=== PATIENT | female | born 1975 | race Caucasian/White ===

== ENCOUNTER 2022-08-11 18:05 | Emergency (ER) | payer OTHER, SELFPAY ==
--- NOTE | ~2022-08-11 | CT_ITS ---
EXAMINATION: CT ABDOMEN AND PELVIS WITHOUT CONTRAST CLINICAL INFORMATION: Right flank pain. Question stone. COMPARISON: None TECHNIQUE: Multidetector volumetric imaging was performed from the superior aspect of the liver through the pubic symphysis. Sagittal and coronal reformatted images were obtained on the technologist's workstation. This CT examination was performed using dose optimization techniques as appropriate, variously including the following: *Automated exposure control *Adjustment of mA and/or kV according to patient size (this includes techniques or standardized protocols for targeted exams where dose is matched to indication/reason for exam; i.e. extremities or head) *Use of iterative reconstruction technique DLP: 713 mGy-cm FINDINGS: LUNG BASES: The visualized lung bases are unremarkable. LIVER, GALLBLADDER, AND BILIARY TREE: The liver is normal in size, shape, and attenuation. No focal hepatic lesion or biliary ductal dilatation is present. The gallbladder is unremarkable with no evidence of radiopaque gallstones, gallbladder wall thickening, or obvious pericholecystic inflammatory changes. PANCREAS: Unremarkable. SPLEEN: Unremarkable. ADRENAL GLANDS: Unremarkable. KIDNEYS AND URETERS: The right kidney is normal appearing. No right renal stone or hydronephrosis. No right ureteral dilatation or ureteral stone. There are 3 left renal stones. There are 2 small 2 to 3 mm stones in the upper pole of the left kidney. There is a larger 2 x 5 mm stone in the lower pole of the left kidney. There is a 1.5 cm low-attenuation area in the central lower pole of the left kidney probably representing a peripelvic cyst. No imaging follow-up recommended.. No hydronephrosis. BLADDER: Unremarkable. GASTROINTESTINAL TRACT: The small and large bowel are unremarkable. The appendix is is not identified. There are no inflammatory changes in the right lower quadrant. ABDOMINAL WALL: No significant hernia is appreciated. There is diastasis of the rectus muscles. LYMPH NODES: Normal. VASCULAR: Unremarkable. PELVIC VISCERA: There is an IUD in the uterus in satisfactory position. OSSEOUS STRUCTURES: Unremarkable. CT/CT abdomen pelvis wo IV con IMPRESSION: Left renal stones. No right renal stone seen. Fleischner guidelines were followed.
--- NOTE | 2022-08-11 18:24 | ED_ITS ---
HPI - Back Pain/Injury General Chief Complaint: Back Pain/Injury <Audrey Lopez CNP - Last Filed: 08/11/22 20:21> Stated Complaint: lower right side back pain <Audrey Lopez CNP - Last Filed: 08/11/22 20:21> Time Seen by Provider: 08/11/22 20:19 <Audrey Lopez CNP - Last Filed: 08/11/22 20:21> Source: patient <Paul Lozada MD - Last Filed: 08/12/22 02:13> Mode of arrival: ambulatory <Paul Lozada MD - Last Filed: 08/12/22 02:13> Limitations: language barrier ( Urdu speaking only, iPad information technology architect used) <Paul Lozada MD - Last Filed: 08/12/22 02:13> History of Present Illness HPI Narrative: 46-year-old female who presents emergency department for evaluation of right back/flank pain x2 days. The patient states that she has had a constant pain she points to her right lower back when asked localize the pain. She states that the stabbing pain which is worse with movement. The pain is been there for approximately 2-3 days this is a 1st episode of this type of pain. She denied frequency, urgency or dysuria. She states that she was seen yesterday at an urgent care clinic and was started on the muscle, tizanidine without any relief of her pain. She states she has chronic pain in both lower extremities for several months and takes gabapentin for this pain. She denies any new numbness or weakness in her lower extremities. She denies loss of bowel or bladder control. She denied fever, chills, sore throat, cough, chest pain, shortness of breath, nausea, vomiting or diarrhea. <Paul Lozada MD - Last Filed: 08/12/22 02:13> Related Data Home Medications: Previous Rx's Medication Instructions Recorded acetaminophen 500 mg capsule 1,000 mg PO Q6H PRN pain #30 caps 08/12/22 ibuprofen 400 mg tablet 400 mg PO TID PRN fever or pain 08/12/22 #30 tabs oxycodone 5 mg capsule 5 mg PO Q4H PRN pain #10 caps 08/12/22 <Audrey Lopez CNP - Last Filed: 08/11/22 20:21> Allergies/Adverse Reactions: Allergies Allergy/AdvReac Type Severity Reaction Status Date / Time cortisone [CORTISONE] Allergy Unknown UNKNOWN Unverified 03/05/20 17:12 <Audrey Lopez CNP - Last Filed: 08/11/22 20:21> Review of Systems Review of Systems: Yes all other systems are reviewed and are negative <Paul Lozada MD - Last Filed: 08/12/22 02:13> [facility] Social History Social History: Social History Smoked in Last 30 Days: No Use of substances other than those prescribed or required for medical reasons: No Advance Directives: No Advance Directives Information Provided: Yes <Audrey Lopez CNP - Last Filed: 08/11/22 20:21> Physical Exam Vital Signs: Vital Signs: Last Vital Signs Temp 98.4 F 08/12/22 01:33 Pulse 72 08/12/22 01:33 Resp 16 08/12/22 01:33 BP 164/100 H 08/12/22 01:33 Pulse Ox 97 08/12/22 01:33 O2 Del Method 08/12/22 01:33 BMI result Body Mass Index 29.5 <Audrey Lopez CNP - Last Filed: 08/11/22 20:21> Vital Signs: Last Vital Signs Temp 98.4 F 08/12/22 01:33 Pulse 72 08/12/22 01:33 Resp 16 08/12/22 01:33 BP 164/100 H 08/12/22 01:33 Pulse Ox 97 08/12/22 01:33 O2 Del Method 08/12/22 01:33 BMI result Body Mass Index 29.5 <Paul Lozada MD - Last Filed: 08/12/22 02:13> Const: General: cooperative and no acute distress <Paul Lozada MD - Last Filed: 08/12/22 02:13> Orientation/consciousness: oriented to person and oriented to place <Paul Lozada MD - Last Filed: 08/12/22 02:13> Limitations: no limitations <Paul Lozada MD - Last Filed: 08/12/22 02:13> HEENT: Head: Yes normal to inspection, Yes normocephalic and Yes atraumatic <Paul Lozada MD - Last Filed: 08/12/22 02:13> Ears: external ears normal <Paul Lozada MD - Last Filed: 08/12/22 02:13> General nose exam: Normal external nose present <Paul Lozada MD - Last Filed: 08/12/22 02:13> Face and sinus: Yes normal facial exam <Paul Lozada MD - Last Filed: 08/12/22 02:13> Mouth: Normal oral and palatal mucosa present <Paul Lozada MD - Last Filed: 08/12/22 02:13> Throat: Yes posterior oropharynx normal <Paul Lozada MD - Last Filed: 08/12/22 02:13> Eyes: General: appearance normal, both eyes and all related structures <Paul Lozada MD - Last Filed: 08/12/22 02:13> Pupils: Equal, round and reactive pupils present <Paul Lozada MD - Last Filed: 08/12/22 02:13> Neck: Neck: Yes normal visual inspection, Yes no lymphadenopathy, Yes trachea midline and Yes supple <Paul Lozada MD - Last Filed: 08/12/22 02:13> Chest: Chest palpation & inspection: normal inspection of the chest and normal palpation of entire chest wall <Paul Lozada MD - Last Filed: 08/12/22 02:13> Resp: Effort & Inspection: normal respiratory effort and able to speak in complete sentences <Paul Lozada MD - Last Filed: 08/12/22 02:13> Auscultation: clear to auscultation bilaterally <Paul Lozada MD - Last Filed: 08/12/22 02:13> Cardio: Rate: regular rate <Paul Lozada MD - Last Filed: 08/12/22 02:13> Rhythm: regular rhythm <Paul Lozada MD - Last Filed: 08/12/22 02:13> Heart sounds: S1 normal heart sound present, S2 normal heart sound present and no murmurs <Paul Lozada MD - Last Filed: 08/12/22 02:13> GI: Inspection: Yes normal to inspection <Paul Lozada MD - Last Filed: 08/12/22 02:13> Palpation (GI): Soft to palpation, nontender and no guarding <Paul Lozada MD - Last Filed: 08/12/22 02:13> Auscultation: normal bowel sounds <Paul Lozada MD - Last Filed: 08/12/22 02:13> Back/Spine/Pelvis: Other: Patient has tenderness palpation of her paraspinal muscles in the right lumbar sacral area, she has negative straight leg raises bilaterally. <Paul Lozada MD - Last Filed: 08/12/22 02:13> Skin: General skin exam: no rashes or lesions noted <Paul Lozada MD - Last Filed: 08/12/22 02:13> Neuro: General: oriented to person and oriented to place <Paul Lozada MD - Last Filed: 08/12/22 02:13> Cranial nerves: Yes CN's II-XII intact bilaterally and Yes Equal, round and reactive pupils present <Paul Lozada MD - Last Filed: 08/12/22 02:13> Cognition (Neuro): normal cognition <Paul Lozada MD - Last Filed: 08/12/22 02:13> Motor exam (neuro): 5/5 motor strength present throughout <Paul Lozada MD - Last Filed: 08/12/22 02:13> Extrem: General: Yes normal to inspection <Paul Lozada MD - Last Filed: 08/12/22 02:13> Psych: Appearance: grossly normal <Paul Lozada MD - Last Filed: 08/12/22 02:13> Speech and movement: Normal speech and movement present <Paul Lozada MD - Last Filed: 08/12/22 02:13> Affect: normal affect <Paul Lozada MD - Last Filed: 08/12/22 02:13> Attitude: cooperative <Paul Lozada MD - Last Filed: 08/12/22 02:13> Course Course Course Narrative: Patient is a 46-year-old female who presents emergency department for evaluation of right lower back/ flank pain. Onset of symptoms was a few days ago without precipitating injury. Denies any heavy lifting. Denies any prior history of back pain. Denies symptoms. States she was seen by PCP yesterday, received prescription for muscle relaxer, Tizanadine 2mg, has taken a few times, but this is not helping. Denies fevers, chills, N/V, ABD pain. Plan: urinalysis, labs <Audrey Lopez CNP - Last Filed: 08/11/22 20:21> Medications Administered Discontinued Medications Generic Name Dose Route Start Last Admin Trade Name Freq PRN Reason Stop Dose Admin Acetaminophen 975 mg 08/11/22 23:52 08/12/22 01:34 Acetaminophen 325 Mg Tablet PO 08/11/22 23:53 975 mg ONCE STA Administration Ibuprofen 400 mg 08/11/22 23:52 08/12/22 01:35 Ibuprofen 400 Mg Tablet PO 08/11/22 23:53 400 mg ONCE ONE Administration Oxycodone HCl 5 mg 08/11/22 23:52 08/12/22 01:35 Oxycodone Hcl Immed Release 5 Mg Tablet PO 08/11/22 23:53 5 mg ONCE STA Administration <Audrey Lopez CNP - Last Filed: 08/11/22 20:21> Medications Administered Discontinued Medications Generic Name Dose Route Start Last Admin Trade Name Freq PRN Reason Stop Dose Admin Acetaminophen 975 mg 08/11/22 23:52 08/12/22 01:34 Acetaminophen 325 Mg Tablet PO 08/11/22 23:53 975 mg ONCE STA Administration Ibuprofen 400 mg 08/11/22 23:52 08/12/22 01:35 Ibuprofen 400 Mg Tablet PO 08/11/22 23:53 400 mg ONCE ONE Administration Oxycodone HCl 5 mg 08/11/22 23:52 08/12/22 01:35 Oxycodone Hcl Immed Release 5 Mg Tablet PO 08/11/22 23:53 5 mg ONCE STA Administration <Paul Lozada MD - Last Filed: 08/12/22 02:13> Medical Decision Making Medical Decision Making [facility] Narrative: 46-year-old female who presents emergency department for evaluation of 3 days of right lower back pain with no injury. She had no systemic symptoms. Laboratory evaluation and CT scan abdomen pelvis was ordered by provider in triage. Laboratory evaluation was ordered by per quadrant triage. My independent interpretation of patient's laboratory evaluation is as follows: CBC was normal. CMP was normal. Urinalysis revealed 1+ blood, trace leukocyte esterase. Microscopic revealed 3-5 RBCs 0-[address] scan of the abdomen pelvis without IV contrast did not reveal a clear cause for the patient's right-sided back pain, the patient does have 3 nonobstructing kidney stones in the left kidney. Patient's presentation is consistent with musculoskeletal strain of her lower back. Patient was advised to continue taking her tizanidine for muscle spasm. She was also advised to take Tylenol and ibuprofen and for pain not relieved by these medications she was prescribed a limited number of oxycodone. The patient was given printed and verbal instructions and discharged home. <Paul Lozada MD - Last Filed: 08/12/22 02:13> Differential Diagnosis Differential diagnosis includes but is not limited to musculoskeletal strain, disc disease, pyelonephritis, urinary tract infection, renal colic, ureteral stones <Paul Lozada MD - Last Filed: 08/12/22 02:13> Lab Data [facility] Lab Attestation statement: I reviewed the patient's lab results. <Paul Lozada MD - Last Filed: 08/12/22 02:13> please see [facility] for my discussion <Paul Lozada MD - Last Filed: 08/12/22 02:13> Result Diagrams: 08/11/22 18:59 08/11/22 18:59 <Audrey Lopez CNP - Last Filed: 08/11/22 20:21> Labs: Lab Results 08/11/22 08/11/22 08/11/22 Range/Units 18:59 18:59 19:55 WBC 11.8 H (4.8-10.8) X10*3/uL RBC 4.63 (4.20-5.50) X10*6/uL Hgb 14.1 (12.0-16.0) g/dl Hct 42.9 (37.0-47.0) % MCV 92.7 (80.0-98.0) fL MCH 30.5 (27.0-33.0) pg MCHC 32.9 (31.0-35.0) g/dl RDW 13.5 (11.0-16.0) % Plt Count 309 (160-400) X10*3/uL MPV 10.5 (9.4-12.3) fL Immature Gran % (Auto) 0.3 (0.0-0.4) % Neut % (Auto) 56.1 (45-73) % Lymph % (Auto) 35.3 (20-40) % [place] % (Auto) 6.4 (2-11) % Eos % (Auto) 1.3 (0-4) % Baso % (Auto) 0.6 (0-2) % Lymph # (Auto) 4.2 (1.2-4.9) X10*3/uL [place] # (Auto) 0.8 (0.1-1.2) X10*3/uL Eos # (Auto) 0.2 (0.0-0.4) X10*3/uL Baso # (Auto) 0.1 (0.0-0.2) X10*3/uL Abs Immat Gran (auto) 0.04 H (0.00-0.03) X10*3/uL Absolute Neuts (auto) 6.6 (2.0-8.3) x10*3/uL Absolute Nucleated RBC 0.000 (0.0-0.012) X10*3/uL Nucleated RBC % (auto) 0.0 (0.0-0.2) /100WBC Sodium 144 (135-145) mmol/L Potassium 3.6 (3.3-5.1) mmol/L Chloride 107 (96-108) mmol/L Carbon Dioxide 27 (22-29) mmol/L Anion Gap 14 (12-20) BUN 20 H (9-16) mg/dL Creatinine 0.77 (0.5-1.4) mg/dL Estim Creat Clear Calc 93.2 Estimated GFR > 60 Random Glucose 116 H (60-115) mg/dL Calcium 9.8 (8.4-10.2) mg/dL Total Bilirubin 0.6 (0.0-1.0) mg/dL AST 15 (5-31) U/L ALT 15 (0-31) U/L Alkaline Phosphatase 96 (39-117) U/L Total Protein 7.0 (6.5-8.0) g/dL Albumin 4.2 (3.5-5.0) g/dL Beta HCG, Quant < 2 mIU/mL Urine Color Yellow Urine Appearance Cloudy Urine pH 5.5 (5.0-9.0) Ur Specific Lynn 1.025 (1.005-1.025) Urine Protein Negative (Neg-Trace) mg/dL Urine Glucose (UA) Negative (Negative) mg/dL Urine Ketones Negative (Negative) mg/dL Urine Blood Small (1+) H (Negative) Urine Nitrite Negative (Negative) Ur Leukocyte Esterase Trace H (Negative) Urine RBC 3-5 H (0-2) /HPF Urine WBC 0-5 (0-5) /HPF Ur Squamous Epith Cells 6-10 (0-2) /HPF Urine Bacteria 2+ (None Seen) Hyaline Casts 0-2 (0-2) /LPF Urine Test (NEGATIVE) 08/11/22 Range/Units 19:55 WBC (4.8-10.8) X10*3/uL RBC (4.20-5.50) X10*6/uL Hgb (12.0-16.0) g/dl Hct (37.0-47.0) % MCV (80.0-98.0) fL MCH (27.0-33.0) pg MCHC (31.0-35.0) g/dl RDW (11.0-16.0) % Plt Count (160-400) X10*3/uL MPV (9.4-12.3) fL Immature Gran % (Auto) (0.0-0.4) % Neut % (Auto) (45-73) % Lymph % (Auto) (20-40) % [place] % (Auto) (2-11) % Eos % (Auto) (0-4) % Baso % (Auto) (0-2) % Lymph # (Auto) (1.2-4.9) X10*3/uL [place] # (Auto) (0.1-1.2) X10*3/uL Eos # (Auto) (0.0-0.4) X10*3/uL Baso # (Auto) (0.0-0.2) X10*3/uL Abs Immat Gran (auto) (0.00-0.03) X10*3/uL Absolute Neuts (auto) (2.0-8.3) x10*3/uL Absolute Nucleated RBC (0.0-0.012) X10*3/uL Nucleated RBC % (auto) (0.0-0.2) /100WBC Sodium (135-145) mmol/L Potassium (3.3-5.1) mmol/L Chloride (96-108) mmol/L Carbon Dioxide (22-29) mmol/L Anion Gap (12-20) BUN (9-16) mg/dL Creatinine (0.5-1.4) mg/dL Estim Creat Clear Calc Estimated GFR Random Glucose (60-115) mg/dL Calcium (8.4-10.2) mg/dL Total Bilirubin (0.0-1.0) mg/dL AST (5-31) U/L ALT (0-31) U/L Alkaline Phosphatase (39-117) U/L Total Protein (6.5-8.0) g/dL Albumin (3.5-5.0) g/dL Beta HCG, Quant mIU/mL Urine Color Urine Appearance Urine pH (5.0-9.0) Ur Specific Lynn (1.005-1.025) Urine Protein (Neg-Trace) mg/dL Urine Glucose (UA) (Negative) mg/dL Urine Ketones (Negative) mg/dL Urine Blood (Negative) Urine Nitrite (Negative) Ur Leukocyte Esterase (Negative) Urine RBC (0-2) /HPF Urine WBC (0-5) /HPF Ur Squamous Epith Cells (0-2) /HPF Urine Bacteria (None Seen) Hyaline Casts (0-2) /LPF Urine Test NEGATIVE (NEGATIVE) <Audrey Lopez, PARK - Last Filed: 08/11/22 20:21> Lab Results 02/23/23 02/23/23 02/23/23 Range/Units 18:59 18:59 19:55 WBC 11.8 H (4.8-10.8) X10*3/uL RBC 4.63 (4.20-5.50) X10*6/uL Hgb 14.1 (12.0-16.0) g/dl Hct 42.9 (37.0-47.0) % MCV 92.7 (80.0-98.0) fL MCH 30.5 (27.0-33.0) pg MCHC 32.9 (31.0-35.0) g/dl RDW 13.5 (11.0-16.0) % Plt Count 309 (160-400) X10*3/uL MPV 10.5 (9.4-12.3) fL Immature Gran % (Auto) 0.3 (0.0-0.4) % Neut % (Auto) 56.1 (45-73) % Lymph % (Auto) 35.3 (20-40) % [place] % (Auto) 6.4 (2-11) % Eos % (Auto) 1.3 (0-4) % Baso % (Auto) 0.6 (0-2) % Lymph # (Auto) 4.2 (1.2-4.9) X10*3/uL [place] # (Auto) 0.8 (0.1-1.2) X10*3/uL Eos # (Auto) 0.2 (0.0-0.4) X10*3/uL Baso # (Auto) 0.1 (0.0-0.2) X10*3/uL Abs Immat Gran (auto) 0.04 H (0.00-0.03) X10*3/uL Absolute Neuts (auto) 6.6 (2.0-8.3) x10*3/uL Absolute Nucleated RBC 0.000 (0.0-0.012) X10*3/uL Nucleated RBC % (auto) 0.0 (0.0-0.2) /100WBC Sodium 144 (135-145) mmol/L Potassium 3.6 (3.3-5.1) mmol/L Chloride 107 (96-108) mmol/L Carbon Dioxide 27 (22-29) mmol/L Anion Gap 14 (12-20) BUN 20 H (9-16) mg/dL Creatinine 0.77 (0.5-1.4) mg/dL Estim Creat Clear Calc 93.2 Estimated GFR > 60 Random Glucose 116 H (60-115) mg/dL Calcium 9.8 (8.4-10.2) mg/dL Total Bilirubin 0.6 (0.0-1.0) mg/dL AST 15 (5-31) U/L ALT 15 (0-31) U/L Alkaline Phosphatase 96 (39-117) U/L Total Protein 7.0 (6.5-8.0) g/dL Albumin 4.2 (3.5-5.0) g/dL Beta HCG, Quant < 2 mIU/mL Urine Color Yellow Urine Appearance Cloudy Urine pH 5.5 (5.0-9.0) Ur Specific Lynn 1.025 (1.005-1.025) Urine Protein Negative (Neg-Trace) mg/dL Urine Glucose (UA) Negative (Negative) mg/dL Urine Ketones Negative (Negative) mg/dL Urine Blood Small (1+) H (Negative) Urine Nitrite Negative (Negative) Ur Leukocyte Esterase Trace H (Negative) Urine RBC 3-5 H (0-2) /HPF Urine WBC 0-5 (0-5) /HPF Ur Squamous Epith Cells 6-10 (0-2) /HPF Urine Bacteria 2+ (None Seen) Hyaline Casts 0-2 (0-2) /LPF Urine Test (NEGATIVE) 08/11/22 Range/Units 19:55 WBC (4.8-10.8) X10*3/uL RBC (4.20-5.50) X10*6/uL Hgb (12.0-16.0) g/dl Hct (37.0-47.0) % MCV (80.0-98.0) fL MCH (27.0-33.0) pg MCHC (31.0-35.0) g/dl RDW (11.0-16.0) % Plt Count (160-400) X10*3/uL MPV (9.4-12.3) fL Immature Gran % (Auto) (0.0-0.4) % Neut % (Auto) (45-73) % Lymph % (Auto) (20-40) % [place] % (Auto) (2-11) % Eos % (Auto) (0-4) % Baso % (Auto) (0-2) % Lymph # (Auto) (1.2-4.9) X10*3/uL [place] # (Auto) (0.1-1.2) X10*3/uL Eos # (Auto) (0.0-0.4) X10*3/uL Baso # (Auto) (0.0-0.2) X10*3/uL Abs Immat Gran (auto) (0.00-0.03) X10*3/uL Absolute Neuts (auto) (2.0-8.3) x10*3/uL Absolute Nucleated RBC (0.0-0.012) X10*3/uL Nucleated RBC % (auto) (0.0-0.2) /100WBC Sodium (135-145) mmol/L Potassium (3.3-5.1) mmol/L Chloride (96-108) mmol/L Carbon Dioxide (22-29) mmol/L Anion Gap (12-20) BUN (9-16) mg/dL Creatinine (0.5-1.4) mg/dL Estim Creat Clear Calc Estimated GFR Random Glucose (60-115) mg/dL Calcium (8.4-10.2) mg/dL Total Bilirubin (0.0-1.0) mg/dL AST (5-31) U/L ALT (0-31) U/L Alkaline Phosphatase (39-117) U/L Total Protein (6.5-8.0) g/dL Albumin (3.5-5.0) g/dL Beta HCG, Quant mIU/mL Urine Color Urine Appearance Urine pH (5.0-9.0) Ur Specific Lynn (1.005-1.025) Urine Protein (Neg-Trace) mg/dL Urine Glucose (UA) (Negative) mg/dL Urine Ketones (Negative) mg/dL Urine Blood (Negative) Urine Nitrite (Negative) Ur Leukocyte Esterase (Negative) Urine RBC (0-2) /HPF Urine WBC (0-5) /HPF Ur Squamous Epith Cells (0-2) /HPF Urine Bacteria (None Seen) Hyaline Casts (0-2) /LPF Urine Test NEGATIVE (NEGATIVE) <Paul Lozada MD - Last Filed: 08/12/22 02:13> Radiology Impression Discussion of test interpretation with radiology: I have reviewed the radiologist's reading. <Paul Lozada MD - Last Filed: 08/12/22 02:13> Radiologist Impression: EXAMINATION: CT ABDOMEN AND PELVIS WITHOUT CONTRAST CLINICAL INFORMATION: Right flank pain. Question stone. COMPARISON: None TECHNIQUE: Multidetector volumetric imaging was performed from the superior aspect of the liver through the pubic symphysis. Sagittal and coronal reformatted images were obtained on the technologist's workstation. This CT examination was performed using dose optimization techniques as appropriate, variously including the following: *Automated exposure control *Adjustment of mA and/or kV according to patient size (this includes techniques or standardized protocols for targeted exams where dose is matched to indication/reason for exam; i.e. extremities or head) *Use of iterative reconstruction technique DLP: 713 mGy-cm FINDINGS: LUNG BASES: The visualized lung bases are unremarkable. LIVER, GALLBLADDER, AND BILIARY TREE: The liver is normal in size, shape, and attenuation. No focal hepatic lesion or biliary ductal dilatation is present. The gallbladder is unremarkable with no evidence of radiopaque gallstones, gallbladder wall thickening, or obvious pericholecystic inflammatory changes. PANCREAS: Unremarkable. SPLEEN: Unremarkable. ADRENAL GLANDS: Unremarkable. KIDNEYS AND URETERS: The right kidney is normal appearing. No right renal stone or hydronephrosis. No right ureteral dilatation or ureteral stone. There are 3 left renal stones. There are 2 small 2 to 3 mm stones in the upper pole of the left kidney. There is a larger 2 x 5 mm stone in the lower pole of the left kidney. There is a 1.5 cm low-attenuation area in the central lower pole of the left kidney probably representing a peripelvic cyst. No imaging follow-up recommended.. No hydronephrosis. BLADDER: Unremarkable. GASTROINTESTINAL TRACT: The small and large bowel are unremarkable. The appendix is is not identified. There are no inflammatory changes in the right lower quadrant. ABDOMINAL WALL: No significant hernia is appreciated. There is diastasis of the rectus muscles. LYMPH NODES: Normal. VASCULAR: Unremarkable. PELVIC VISCERA: There is an IUD in the uterus in satisfactory position. OSSEOUS STRUCTURES: Unremarkable. CT/CT abdomen pelvis wo IV con IMPRESSION: Left renal stones. No right renal stone seen. Fleischner guidelines were followed. Dictated By:Katelyn Montes De Oca MDSigned By:<Electronically signed by Katelyn Montes De Oca MD in [place]>08/11/[id number] <Paul Lozada MD - Last Filed: 08/12/22 02:13> Discharge Plan Discharge Clinical Impression: Strain of lumbar region <Audrey Lopez CNP - Last Filed: 08/11/22 20:21> Patient Disposition: Home, Self-Care <Audrey Lopez CNP - Last Filed: 08/11/22 20:21> Instructions: Acute Low Back Pain (ED) <Audrey Lopez CNP - Last Filed: 08/11/22 20:21> Additional Instructions: Your laboratory evaluation was normal. The CT scan of your abdomen pelvis with IV contrast did not reveal any findings on the right side to explain your pain. You do have 3 kidney stones on your left kidney, these may cause you pain in the future but are not the cause of your right-sided pain at this time. Your urine test was normal, you do not have a urine infection. Your urine test was normal. Take ibuprofen 200 mg pills, 3 pills every 6 hours as needed for pain. Take Tylenol (acetaminophen) 500 mg pills, 2 pills every 4-6 hours as needed for pain. For pain not relieved by ibuprofen or Tylenol take oxycodone 5 mg pills, 1 pill every 4 hours as needed for pain. Do not drive or work while taking this medication since they can cause sleepiness. Oxycodone is a narcotic medication that can be addicting. If you are concerned about addiction you can ask the pharmacist for less pills or do not get this prescription filled. Follow-up with your doctor in 2 days. Please return to the emergency department if your symptoms get worse or if you develop any symptoms that are concerning to you. <Audrey Lopez CNP - Last Filed: 08/11/22 20:21> Prescriptions: New oxycodone 5 mg capsule 5 mg PO Q4H PRN (Reason: pain) Qty: 10 0RF Rx Instructions: Partial Fill upon patient request. ibuprofen 400 mg tablet 400 mg PO TID PRN (Reason: fever or pain) Qty: 30 0RF acetaminophen 500 mg capsule 1,000 mg PO Q6H PRN (Reason: pain) Qty: 30 0RF <Audrey Lopez CNP - Last Filed: 08/11/22 20:21> Referrals: Kirti Fu [Primary Care Provider] - 1 week <Audrey Lopez CNP - Last Filed: 08/11/22 20:21> Interventions: ED Discharge Assessment Last Done: 08/12/22 01:48 <Audrey Lopez CNP - Last Filed: 08/11/22 20:21> Discharge Date/Time: 08/12/22 01:48 <Audrey Lopez CNP - Last Filed: 08/11/22 20:21>
[2022-08-11 18:25] VITALS: BP 166/80; PULSE 74; RESP 16; O2SAT 95; BMI 29.5
[2022-08-11 19:03] LABS: MANUAL DIFF FLAG NO
[2022-08-11 19:04] LABS: Basophils Absolute Auto 0.1 X10*3/uL (0.0-0.2); Basophils Percent Auto 0.6 % (0-2); Eosinophils Absolute Auto 0.2 X10*3/uL (0.0-0.4); Eosinophils Percent Auto 1.3 % (0-4); Hematocrit 42.9 % (37.0-47.0); Hemoglobin 14.1 g/dl (12.0-16.0); Imm Gran Abs Auto 0.04 X10*3/uL (0.00-0.03); Imm Gran Pct Auto 0.3 % (0.0-0.4); Lymphocytes Absolute Auto 4.2 X10*3/uL (1.2-4.9); Lymphocytes Percent Auto 35.3 % (20-40); Mean Corpuscular HGB Conc 32.9 g/dl (31.0-35.0); Mean Corpuscular Hemoglobin 30.5 pg (27.0-33.0); Mean Corpuscular Volume 92.7 fL (80.0-98.0); Mean Platelet Volume 10.5 fL (9.4-12.3); Monocytes Absolute Auto 0.8 X10*3/uL (0.1-1.2); Monocytes Percent Auto 6.4 % (2-11); Neutrophils Absolute Auto 6.6 x10*3/uL (2.0-8.3); Neutrophils Percent Auto 56.1 % (45-73); Platelet Count 309 X10*3/uL (160-400); Red Blood Count 4.63 X10*6/uL (4.20-5.50); Red Cell Distribution Width 13.5 % (11.0-16.0); White Blood Count 11.8 X10*3/uL (4.8-10.8)
[2022-08-11 19:23] LABS: Alanine Aminotransferase 15 U/L (0-31); Albumin Level 4.2 g/dL (3.5-5.0); Alkaline Phosphatase 96 U/L (39-117); Anion Gap 14 (12-20); Aspartate Amino Transferase 15 U/L (5-31); Bilirubin Total 0.6 mg/dL (0.0-1.0); Blood Urea Nitrogen 20 mg/dL (9-16); Calcium 9.8 mg/dL (8.4-10.2); Carbon Dioxide 27 mmol/L (22-29); Chloride 107 mmol/L (96-108); Creatinine Clr Calc Pharmacy 93.2; Estimated Glomerular Filt Rate > 60; Glucose Random 116 mg/dL (60-115); Potassium 3.6 mmol/L (3.3-5.1); Sodium 144 mmol/L (135-145)
[2022-08-11 20:07] LABS: Appearance Urine Cloudy; Color Urine Yellow; Glucose Urine UA Negative (Negative); Leukocyte Esterase Urine Trace (Negative); Nitrite Urine Negative (Negative); PH 5.5 (5.0-9.0); Specific Gravity - Urine 1.025 (1.005-1.025); UMIC TRIGGER UACC YES; Urine Blood Small (1+) (Negative); Urine Ketones Negative (Negative); Urine Protein Negative (Neg-Trace)
[2022-08-11 20:09] LABS: UPreg QC Valid YES; Urine Pregnancy NEGATIVE (NEGATIVE)
[2022-08-11 20:31] LABS: Bacteria Urine 2+ (None Seen); Hyaline Casts Urine 0-2 /LPF (0-2); WBC Urine 0-5 /HPF (0-5)
[2022-08-11 20:32] LABS: HCG Quantitative < 2 mIU/mL
[2022-08-11 20:34] VITALS: BP 185/97; PULSE 78; RESP 17; TEMP 35.9; O2SAT 98
[2022-08-12] VITALS: BP 161/103; PULSE 74; RESP 16; TEMP 36.7; O2SAT 97
[2022-08-12 01:33] VITALS: BP 164/100; PULSE 72; RESP 16; TEMP 36.9; O2SAT 97
[2022-08-12] MEDS: Acetaminophen 325 MG TABLET 975 MG PO (01:34)
[2022-08-12] MEDS: Ibuprofen 400 MG TABLET PO (01:35)
[2022-08-12] MEDS: oxyCODONE HCl Immed Release 5 MG TABLET PO (01:35)
== END 2022-08-12 01:48 | disposition home or self-care (01) ==
PROVIDERS: Nurse Practitioner Family; Physician Assistant; Emergency Provider Emergency Medicine Emergency Medical Services; PCP Internal Medicine
DX: S39.012A Strain of muscle, fascia and tendon of lower back, initial encounter (principal); X58.XXXA Exposure to other specified factors, initial encounter; Y93.9 Activity, unspecified; Y92.9 Unspecified place or not applicable; Y99.9 Unspecified external cause status
CPT/HCPCS: 36415; 74176; 80053; 81001; 81025; 84702; 85025; 99284

== ENCOUNTER 2024-12-15 16:37 | Emergency (ER) | payer OTHER, SELFPAY ==
--- NOTE | ~2024-12-15 | XR_ITS ---
CLINICAL HISTORY: atraumatic midline back pain Radiographs of the thoracic spine, three views Comparison: None available Findings: There is normal alignment. No fracture. The vertebral body heights are preserved. There is mild multilevel intervertebral disc space narrowing with severe endplate osteophytosis. The soft tissues are normal. Impression: No acute findings. Moderate degenerative change. This document has been electronically signed by: Lise Anaya MD on 12/15/2024 18:16:33
--- NOTE | ~2024-12-15 | XR_ITS ---
CLINICAL HISTORY: atraumatic midline back pain Radiographs of the lumbar spine, 3 views Comparison: None available Findings: Alignment is within normal limits. No fracture. The vertebral body heights are preserved. There is mild multilevel intervertebral disc space narrowing with mild endplate osteophytosis. Moderate lower lumbar facet hypertrophy. The soft tissues are normal. Impression: No acute findings. [id number] degenerative change. This document has been electronically signed by: Lise Anaya MD on 12/15/2024 18:17:26
--- NOTE | ~2024-12-15 | CT_ITS ---
CLINICAL HISTORY: back pain. Kidney stones? CT abdomen and pelvis without contrast Comparison: 08/11/22 Findings: No hydronephrosis. Dilated calyx in lower pole of the left kidney, also present on the prior study. No right nephrolithiasis. Left nephrolithiasis measures up to 7 mm. Lobular contour of the kidneys, normal variant versus scarring. No bladder stone. No consolidation at the lung bases. Unremarkable gallbladder. Intrauterine device in appropriate position. The other solid organs are normal. No bowel wall thickening or dilation. A normal appendix is identified. No aneurysm. Trace calcified atherosclerotic disease. No lymphadenopathy. No ascites. No acute fracture. No large disc herniation. Impression: No urinary tract obstruction or other acute pathology. This document has been electronically signed by: Lise Anaya MD on 12/15/2024 20:25:08
[2024-12-15 16:42] VITALS: BP 144/85; PULSE 78; RESP 16; TEMP 36.7; O2SAT 95; BMI 39.8
--- NOTE | 2024-12-15 16:43 | ED.GENADULT ---
HPI - General Adult General Chief complaint: Back Pain/Injury Stated complaint: back pain Time Seen by Provider: 12/15/24 18:58 Source: patient Mode of arrival: ambulatory Limitations: no limitations History of Present Illness ED Provider: Tiff Marshall HPI narrative: 49-year-old female presents to the ED for back pain for 1 week that is worse on movement without any nausea, vomiting or abdominal pain. Patient denies any urinary/bowel incontinence. Patient denies any history of IV drug use. Patient denies any recent trauma. Related Data Previous Rx's ?Medication ?Instructions ?Recorded acetaminophen 500 mg capsule 1,000 mg (2 x 500 mg) PO Q6H PRN 08/12/22 pain #30 caps ibuprofen 400 mg tablet 400 mg PO TID PRN fever or pain 08/12/22 #30 tabs oxycodone 5 mg capsule 5 mg PO Q4H PRN pain #10 caps 08/12/22 cephalexin 500 mg capsule 500 mg PO QID #28 caps 12/15/24 ketorolac 10 mg tablet 10 mg PO Q6H PRN pain #20 tabs 12/15/24 tamsulosin 0.4 mg capsule (Flomax) 0.4 mg PO DAILY #10 caps 12/15/24 Allergies Allergy/AdvReac Type Severity Reaction Status Date / Time cortisone (CORTISONE) Allergy Severe Shortness Verified 12/15/24 16:46 of Breath Review of Systems Review of Systems: Back pain worse on movement for 1 week Yes all other systems are reviewed and are negative PMFSH Social History Social History Alcohol intake: former Physical Exam ED Vital Signs: Vital Signs - 24 hr 12/15/24 16:42 12/15/24 19:56 12/15/24 22:23 Temperature 98.1 F 97.8 F Pulse Rate 78 60 62 Respiratory Rate 16 16 16 Blood Pressure 144/85 H 145/75 H 152/99 H Pulse Oximetry 95 97 96 Oxygen Delivery Method Room Air Room Air Room Air 12/15/24 22:25 Temperature 0 F L Pulse Rate 0 L Respiratory Rate 0 L Blood Pressure 0/0 L Pulse Oximetry 0 L Oxygen Delivery Method BMI result Body Mass Index 39.8 Const General: cooperative, healthy appearing, comfortable, no acute distress, well developed, alert, awake and Physically active Orientation/consciousness: patient oriented x3 HENMT Head: Yes normal to inspection, Yes No palpable skull fracture present, Yes normocephalic and Yes atraumatic Eyes General: appearance normal, both eyes and all related structures Neck Neck: Yes normal visual inspection, Yes full ROM, Yes no lymphadenopathy, Yes no meningeal signs, Yes trachea midline, Yes supple, No anterior neck swelling and No tender Chest Chest palpation & inspection: normal inspection of the chest and normal palpation of entire chest wall Resp Effort & Inspection: normal respiratory effort and able to speak in complete sentences Auscultation: clear to auscultation bilaterally Cardio Jugular venous distension: no JVD Heart sounds: S1 normal heart sound present and S2 normal heart sound present GI Inspection: Yes normal to inspection Palpation (GI): Soft to palpation, not firm, nontender, no guarding and not rigid General: Yes CVA tenderness (Left and right) Back/Spine/Pelvis Back: CVA tenderness (Left and right) and back tenderness (Thoracic lumbar) Skin General skin exam: no rashes or lesions noted, elasticity normal and turgor normal Neuro General: patient oriented x3, gait normal, tone normal, moves all extremities, Normal light touch and pain sensation, no meningeal signs, no focal motor deficits, CN's II-XI intact bilaterally and normal sensation to monofilament Extrem General: Yes normal to inspection, Yes full ROM and Yes capillary refill normal Psych Appearance: grossly normal, well kempt and not disheveled Course Course Course Narrative: 12/15/24 [id number] BREN Buckner This is a Rapid Medical Examination (RME) performed by Nicolle Lockwood PA-C in triage. Full HPI, ROS, assessment and treatment plan per primary provider in the Main ED. Hx: 49 yo F here for eval of low back pain x 1 week. pain worse w/ sitting/ lying down. no injury/ heavy lifting/ falls. no urinary sx. seen at [facility] 3 days ago, states she did not have any imaging done, dc w/ motrin. no back pain red flags. no ivdu, spinal surgery. PE/vitals: ttp of midline t and l spine without step off. Plan: imaging Reevaluation(s) Reevaluation #1: I had to change all the medications to a different pharmacy Medications Administered Discontinued Medications Generic Name Dose Route Start Last Admin Trade Name Freq PRN Reason Stop Dose Admin Sodium Chloride 1,000 mls @ 999 mls/hr 12/15/24 19:05 12/15/24 21:19 Ns IV 12/15/24 20:05 Infused .Q1H1M STA Infusion Sodium Chloride 1,000 mls @ 999 mls/hr 12/15/24 20:17 12/15/24 21:19 Ns IV 12/15/24 21:17 Not Given .Q1H1M STA Ketorolac Tromethamine 30 mg 12/15/24 19:09 12/15/24 20:01 Ketorolac Tromethamine 30 Mg/Ml Vial IVPUSH 12/15/24 19:10 30 mg ONCE ONE Administration Medical Decision Making Medical Decision Making [facility] Narrative: 49-year-old female presents to ED for back pain worse on movement for the past 1 week without any trauma. Patient admits to heavy lifting. Patient does states history of kidney stones. Patient denies abdominal pain nausea vomiting. Positive CVA flanks. Patient's white count [id number] positive UTI. Patient is sent for CAT scan. Toradol fluids ordered. 8:38pm: Patient has 7 mm kidney stones without any hydronephrosis. Dr. Thomas will be contacted 9:13: Spoke with Dr. Thomas who states it is patient is able to tolerate oral/p.o. patient can be discharged. CT scan negative for hydronephrosis or obstruction. Patient will be discharged with UTI pain meds and Flomax. Patient informed to follow up with Urology. Patient toloerated PO. Differential Diagnosis Differential Diagnoses: The differential diagnosis associated with the presentation includes (Kidney stones, UTI, pyelonephritis) Admission/Observation Consideration of admission/observation: Escalation of care including admission/observation considered Consult Healthcare Provider Management of the patient was discussed with: Medical Coding Specialist (Urology Dr. Thomas) Lab Data [facility] Lab Attestation statement: I reviewed the patient's lab results. 12/15/24 18:45 12/15/24 19:16 Labs: Lab Results 12/15/24 12/15/24 Range/Units 18:45 19:16 WBC 14.2 H (4.8-10.8) X10*3/uL RBC 4.55 (4.20-5.50) X10*6/uL Hgb 13.9 (12.0-16.0) g/dl Hct 41.3 (37.0-47.0) % MCV 90.8 (80.0-98.0) fL MCH 30.5 (27.0-33.0) pg MCHC 33.7 (31.0-35.0) g/dl RDW 13.5 (11.0-16.0) % Plt Count 363 (160-400) X10*3/uL MPV 10.8 (9.4-12.3) fL Immature Gran % (Auto) 0.8 H (0.0-0.4) % Neut % (Auto) 61.7 (45-73) % Lymph % (Auto) 30.0 (20-40) % [place] % (Auto) 5.2 (2-11) % Eos % (Auto) 1.7 (0-4) % Baso % (Auto) 0.6 (0-2) % Lymph # (Auto) 4.3 (1.2-4.9) X10*3/uL [place] # (Auto) 0.7 (0.1-1.2) X10*3/uL Eos # (Auto) 0.2 (0.0-0.4) X10*3/uL Baso # (Auto) 0.1 (0.0-0.2) X10*3/uL Abs Immat Gran (auto) 0.12 H (0.00-0.03) X10*3/uL Absolute Neuts (auto) 8.8 H (2.0-8.3) x10*3/uL Absolute Nucleated RBC 0.000 (0.0-0.012) X10*3/uL Nucleated RBC % (auto) 0.0 (0.0-0.2) /100WBC Hold Purple Top SEE NOTE Sodium 141 (135-145) mmol/L Potassium 3.4 (3.3-5.1) mmol/L Chloride 107 (96-108) mmol/L Carbon Dioxide 25 (22-29) mmol/L Anion Gap 12 (12-20) BUN 27 H (9-16) mg/dL Creatinine 0.81 (0.5-1.4) mg/dL Estim Creat Clear Calc 96.7 Estimated GFR > 60 Random Glucose 148 H (60-115) mg/dL Calcium 9.5 (8.4-10.2) mg/dL Total Bilirubin 0.4 (0.0-1.0) mg/dL AST 29 (5-31) U/L ALT 39 H (0-31) U/L Alkaline Phosphatase 104 (39-117) U/L Total Protein 7.1 (6.5-8.0) g/dL Albumin 4.3 (3.5-5.0) g/dL Urine Color Yellow Urine Appearance Cloudy Urine pH 5.0 (5.0-9.0) Ur Specific [place] >= 1.030 H (1.005-1.025) Urine Protein 30 (1+) H (Neg-Trace) mg/dL Urine Glucose (UA) Negative (Negative) mg/dL Urine Ketones Trace (Negative) mg/dL Urine Blood Trace H (Negative) Urine Nitrite Negative (Negative) Ur Leukocyte Esterase Small (1+) H (Negative) Urine RBC 6-10 H (0-2) /HPF Urine WBC 11-20 H (0-5) /HPF Ur Squamous Epith Cells 11-20 (0-2) /HPF Urine Bacteria 1+ (None Seen) Hyaline Casts 3-5 (0-2) /LPF Urine Test NEGATIVE (NEGATIVE) Independent Interpretation I performed an independent interpretation of an: CT Scan Radiology Impression Discussion of test interpretation with radiology: I have reviewed the radiologist's reading. Independent Historian Clinical information obtained from an independent historian. History obtained from or confirmed by: Other (Patient) Prescription Management I considered prescription management with: Pain Medication and Antibiotic Discharge Plan Discharge Clinical Impression: Renal colic, Calculus, kidney Patient Disposition: Home, Self-Care Instructions: Kidney Stones (ED), Renal Colic (ED) Additional Instructions: CAT scan showed 7 mm kidney stone. You will be discharged with pain medication antibiotics and Flomax. You will need to follow up with Urology. Return to the ED immediately for any abdominal pain, bloody urine, flank pain, fever, chills, inability to tolerate solid food/liquid, or any other concerning symptoms. Ordering Physician: Tiff Marshall Date of Service: 12/15/24 Procedure(s): CT abdomen pelvis wo IV con Accession Number(s): [id number] cc: Tiff Marshall; JACQUELINE ARCHIBALD Report Number: [id number]: Total DLP = 733.00 mGy-cm CLINICAL HISTORY: back pain. Kidney stones? CT abdomen and pelvis without contrast Comparison: 08/11/22 Findings: No hydronephrosis. Dilated calyx in lower pole of the left kidney, also present on the prior study. No right nephrolithiasis. Left nephrolithiasis measures up to 7 mm. Lobular contour of the kidneys, normal variant versus scarring. No bladder stone. No consolidation at the lung bases. Unremarkable gallbladder. Intrauterine device in appropriate position. The other solid organs are normal. No bowel wall thickening or dilation. A normal appendix is identified. No aneurysm. Trace calcified atherosclerotic disease. No lymphadenopathy. No ascites. No acute fracture. No large disc herniation. Impression: No urinary tract obstruction or other acute pathology. This document has been electronically signed by: Lise Anaya MD on 12/15/2024 20:25:08 Prescriptions: New ketorolac 10 mg tablet 10 mg PO Q6H PRN (Reason: pain) Qty: 20 0RF Rx Instructions: maximum total duration of 5 days from all oral, intranasal, or parenteral formulations. Patient received intramuscular Toradol here in the emergency department cephalexin 500 mg capsule 500 mg PO QID Qty: 28 0RF tamsulosin [Flomax] 0.4 mg capsule 0.4 mg PO DAILY Qty: 10 0RF No Action oxycodone 5 mg capsule 5 mg PO Q4H PRN (Reason: pain) Qty: 10 0RF Rx Instructions: Partial Fill upon patient request. ibuprofen 400 mg tablet 400 mg PO TID PRN (Reason: fever or pain) Qty: 30 0RF acetaminophen 500 mg capsule 1,000 mg PO Q6H PRN (Reason: pain) Qty: 30 0RF Referrals: [facility] [place]Provider Group, Urology] - 2 days Referral Note: UTI, kidney stones, Clinical Impression: Renal colic; Calculus, kidney Stand Alone Forms: Work/School Release Interventions: ED Discharge Assessment Last Done: 12/15/24 22:25 Discharge Date/Time: 12/15/24 22:26 Print Language: Luxembourgish
--- OUTSIDE RECORDS SUMMARY | 2024-12-15 18:36 | XMS_ITS | Clinical Summary ---
Author Organization [facility] Address [address] [place] [address] Phone Care Team Providers Care Test Baker Name Role Phone Kirti Fu MD Primary Care Provider [phone] Allergies Active Allergy Reactions Criticality Noted Date Comments Cortisone Anaphylaxis High 10/06/2022 Medications albuterol 2.5 mg /3 mL (0.083 %) nebulizer solution Take 3 mL (2.5 mg total) by nebulization 3 (three) times a day. 5 Active amLODIPine (NORVASC) 10 mg tablet Take 1 tablet (10 mg total) by mouth 1 (one) time each day. 5 Active metoprolol succinate (TOPROL-XL) 25 mg 24 hr tablet Take 1 tablet (25 mg total) by mouth 1 (one) time each day. Active DULoxetine (CYMBALTA) [address] capsule Take 1 capsule (60 mg total) by mouth 1 (one) time each day in the morning. 5 Active clonazePAM (KlonoPIN) 0.5 mg tablet Take 1 tablet (0.5 mg total) by mouth 2 (two) times a day if needed. Max Daily Amount: 1 mg Active Vitamin D3 50 mcg (2,000 unit) tablet Take 1 tablet (2,000 Units total) by mouth 1 (one) time each day. 5 Active atorvastatin (LIPITOR) 20 mg tablet Take 1 tablet (20 mg total) by mouth 1 (one) time each day. 5 Active omeprazole (PriLOSEC) [address] capsule Take 1 capsule (10 mg total) by mouth 1 (one) time each day. Active pregabalin (LYRICA) 100 mg capsule Take 1 capsule (100 mg total) by mouth 2 (two) times a day. Max Daily Amount: 200 mg Active senna 8.6 mg tablet Take 1 tablet (8.6 mg total) by mouth 1 (one) time each day. 5 Active zolpidem (AMBIEN) 10 mg tablet Take 5 mg by mouth at bedtime as needed. Max Daily Amount: 5 mg 5 Active acetaminophen (TYLENOL) 500 mg tablet Take 2 tablets (1,000 mg total) by mouth every 6 (six) hours if needed for mild pain for up to 10 days. 30 tablet 5 12/22/19 25 Active ibuprofen (ADVIL,MOTRIN) 600 mg tablet Take 1 tablet (600 mg total) by mouth every 6 (six) hours if needed for mild pain or moderate pain for up to 10 days. 30 tablet 5 12/22/19 25 Active oxyCODONE (OXY-IR) 5 mg immediate release capsule Take 1 capsule (5 mg total) by mouth every 6 (six) hours if needed for severe pain. Max Daily Amount: 20 mg 4 capsule 5 Active Encounters Date Type Department Care Team Description 12/11/2024 12:35 AM EDT - 12/11/2024 3:15 AM EDT Emergency [facility] Emergency [address] [place] [address] Strain of thoracic back region (Primary Dx) Discharge Disposition: Home or Self Care 10/29/2024 10:45 AM EDT Consult Bariatric Surgery - [place] [address] [facility] [address] [place] [id number] Tito Yo MD Class 2 severe obesity due to excess calories with serious comorbidity and body mass index (BMI) of 38.0 to 38.9 in adult (CMS/HCC V24, CMS/HCC V28) (Primary Dx) from Last 3 Months Social History Tobacco Use Types Packs/Day Years Used Date Smoking Tobacco: Never Assessed Comments Unknown Sex and Gender Information Value Date Recorded Sex Assigned at Not on file Legal Sex Female 7:33 PM EST Gender Identity Not on file Sexual Orientation Not on file Obstetrics History Last Filed Vital Signs Vital Sign Reading Time Taken Comments Blood Pressure 157/86 12/11/2024 1:02 AM EDT Pulse 72 12/11/2024 1:02 AM EDT Temperature 36.9 C (98.5 F) 12/11/2024 1:02 AM EDT Respiratory Rate 18 12/11/2024 1:02 AM EDT Oxygen Saturation 99% 12/11/2024 1:02 AM EDT Inhaled Oxygen Concentration - - Weight 104 kg (230 lb) 12/10/2024 11:14 AM EDT Height 160 cm (5' 3 ) 12/10/2024 11:14 AM EDT Body Mass Index 40.74 12/10/2024 11:14 AM EDT Plan of Treatment Upcoming Encounters Date Type Department Care Team (Late st Contact Info) Description 12/30/2024 2:00 PM EDT Nutrition Bariatric Surgery - [address] [address] Camille Mei, CHRISSY [address] [address] Health Maintenance Due Date Last Done Comments Breast Cancer Screening 1976 DTaP,Tdap,and Td Vaccines (1 - Tdap) 09/17/1995 Hepatitis B Vaccines (1 of 3 - 19+ 3-dose series) 09/17/1995 Cervical Cancer Screening: Pap Smear 1997 Pneumococcal Vaccine: Pediatrics (0 to 5 Years) and At-Risk Patients (6 to 64 Years) (2 of 2 - PCV) 07/22/2014 07/22/2013 Cholesterol Screening (Lipid Panel) 05/21/2022 Colorectal Cancer Screening: Colonoscopy 05/21/2022 Depression Screening 05/21/2022 HIV Screening 05/21/2022 Hepatitis C Screening 05/21/2022 Social Influencers of Health Screening 05/21/2022 COVID-19 Vaccine (1 - season) 2024 Influenza Vaccine (Season Ended) 2025 07/18/2017, 06/01/2016, 04/30/2012, Additional history exists Hypertension/CHF/CAD Annual BMP Blood Test 12/10/2025 12/10/2024 HIB Vaccines Aged Out No longer eligi ble based on patient's age to complete this topic HPV Vaccines Aged Out No longer eligi ble based on patient's age to complete this topic Hepatitis A Vaccines Aged Out No long er eligible based on patient's age to complete this topic IPV Vaccines Aged Out No longer eligi ble based on patient's age to complete this topic MMR Vaccines Aged Out No longer eligi ble based on patient's age to complete this topic Meningococcal ACWY Vaccine Aged Out N o longer eligible based on patient's age to complete this topic Meningococcal B Vaccine Aged Out No l onger eligible based on patient's age to complete this topic RSV Immunization Patients Under 20 months Aged Out No longer eligible based on patient's age to complete this topic Varicella Vaccines Aged Out No longer eligible based on patient's age to complete this topic Procedures Procedure Name Priority Date/Time Associated Diagnosis Comments [place] URINE CULTURE TUBE STAT 12/10/2024 11:57 AM EDT URINALYSIS WITH REFLEX MICROSCOPIC AND CULTURE STAT 12/10/2024 11:57 AM EDT URINALYSIS WITH REFLEX MICROSCOPIC AND CULTURE STAT 12/10/2024 11:57 AM EDT CULTURE URINE STAT 12/10/2024 11:57 AM EDT CBC WITH AUTO DIFFERENTIAL STAT 12/10/2024 11:47 AM EDT COMPREHENSIVE METABOLIC PANEL STAT 12/10/2024 11:47 AM EDT CBC AND DIFFERENTIAL STAT 12/10/2024 11:47 AM EDT from Last 3 Months Results * (ABNORMAL) Urinalysis with reflex microscopic and culture (12/10/2024 11:57 AM EDT) Specific [place] Urine 1.024 1.003 - 1.030 LAB URINALYSIS - AUTOMATED METHOD 12/10/2024 12:49 PM EDT [facility] pH, Urine 6.0 5.0 - 8.0 pH LAB URINALYSIS - AUTOMATED METHOD 12/10/2024 12:49 PM [facility] Leukocytes, Urine Trace(A) Negative LAB URINALYSIS - AUTOMATED METHOD 12/10/2024 12:49 PM [facility] Nitrite, Urine Negative Negative LAB URINALYSIS - AUTOMATED METHOD 12/10/2024 12:49 PM [facility] Protein, Urine 30(A) <=Trace mg/dL LAB URINALYSIS - AUTOMATED METHOD 12/10/2024 12:49 PM [facility] Glucose, Urine Negative Negative mg/dL LAB URINALYSIS - AUTOMATED METHOD 12/10/2024 12:49 PM [facility] Ketones, Urine Trace(A) Negative mg/dL LAB URINALYSIS - AUTOMATED METHOD 12/10/2024 12:49 PM [facility] Urobilinogen, Urine 1.0 0.2 - 1.0 mg/dL LAB URINALYSIS - AUTOMATED METHOD 12/10/2024 12:49 PM [facility] Bilirubin, Urine Negative Negative LAB URINALYSIS - AUTOMATED METHOD 12/10/2024 12:49 PM [facility] Blood, Urine Negative Negative LAB URINALYSIS - AUTOMATED METHOD 12/10/2024 12:49 PM [facility] RBC, Urine 4.0 0 - 4 /HPF LAB URINALYSIS - AUTOMATED METHOD 12/10/2024 12:49 PM [facility] WBC, Urine 6.8(H) 0 - 4 /HPF LAB URINALYSIS - AUTOMATED METHOD 12/10/2024 12:49 PM [facility] Squamous Epithelial, Urine >100(H) 0 - 60 /LPF LAB URINALYSIS - AUTOMATED METHOD 12/10/2024 12:49 PM [facility] Bacteria, Urine Negative Negative /HPF LAB URINALYSIS - AUTOMATED METHOD 12/10/2024 12:49 PM EDT [facility] Hyaline Casts, Urine 0.8 0 - 3 /LPF LAB URINALYSIS - AUTOMATED METHOD 12/10/2024 12:49 PM EDT [facility] Urine Urine specimen obtained by clean catch procedure / Unknown Non-blood Collection / Unknown 12/10/2024 11:57 AM EDT 12/10/2024 12:05 PM EDT us Santino Soliman DO LAB URINE ORDERABLES Final Result Performing Organization Address [facility]/ZIP Co de Phone Number [facility] [address] [place] [address], [place] [phone] * [place] urine culture tube (12/10/2024 11:57 AM EDT) Extra Tube Hold for add-ons. 12/10/2024 2:01 PM EDT [facility] Comment:Auto resulted. Urine Urine specimen obtained by clean catch procedure / Unknown Non-blood Collection / Unknown 12/10/2024 11:57 AM EDT 12/10/2024 12:05 PM EDT us Santino GRIMES URINE ORDERABLES Final Result Performing Organization Address [facility]/ZIP Co de Phone Number [facility] [address] [place] [address], [place] [phone] * Culture urine (12/10/2024 11:57 AM EDT) Culture, Urine No growth 12/11/2024 7:49 AM EDT [facility] Urine Urine specimen obtained by clean catch procedure / Unknown Non-blood Collection / Unknown 12/10/2024 11:57 AM EDT 12/10/2024 12:49 PM EDT us Santino Soliman DO LAB MICROBIOLOGY - GENERAL ORDERABLES Final Result [facility] [address] [place] [address], * (ABNORMAL) CBC auto differential (12/10/2024 11:47 AM EDT) WBC 10.9(H) 4.8 - 10.8 K/mcL LAB HEMETOLOGY METHOD 12/10/2024 12:27 PM EDT [facility] RBC 4.50 3.80 - 4.80 M/mcL LAB HEMETOLOGY METHOD 12/10/2024 12:27 PM EDT [facility] Hemoglobin 13.4 11.5 - 16.0 g/dL LAB HEMETOLOGY METHOD 12/10/2024 12:27 PM [facility] Hematocrit 41.5 35.0 - 47.0 % LAB HEMETOLOGY METHOD 12/10/2024 12:27 PM [facility] MCV 93.0 79.0 - 98.0 FL LAB HEMETOLOGY METHOD 12/10/2024 12:27 PM [facility] MCH 30.0 27.0 - 32.0 pcg LAB HEMETOLOGY METHOD 12/10/2024 12:27 PM [facility] MCHC 32.3 32.0 - 37.0 g/dL LAB HEMETOLOGY METHOD 12/10/2024 12:27 PM EDT [facility] RDW 13.5 11.0 - 15.0 % LAB HEMETOLOGY METHOD 12/10/2024 12:27 PM [facility] Platelets 335 130 - 400 K/mcL LAB HEMETOLOGY METHOD 12/10/2024 12:27 PM [facility] MPV 10.8 7.0 - 11.0 FL LAB HEMETOLOGY METHOD 12/10/2024 12:27 PM EDT [facility] NRBC 0.0 <1.0 % LAB HEMETOLOGY METHOD 12/10/2024 12:27 PM [facility] NRBC Absolute 0.00 <0.10 K/mcL LAB HEMETOLOGY METHOD 12/10/2024 12:27 PM [facility] Neutrophils Relative 53.8 % LAB HEMETOLOGY METHOD 12/10/2024 12:27 PM [facility] Lymphocytes Relative 35.3 % LAB HEMETOLOGY METHOD 12/10/2024 12:27 PM [facility] Monocytes Relative 7.6 % LAB HEMETOLOGY METHOD 12/10/2024 12:27 PM [facility] Eosinophils Relative 1.9 % LAB HEMETOLOGY METHOD 12/10/2024 12:27 PM [facility] Basophils Relative 0.6 % LAB HEMETOLOGY METHOD 12/10/2024 12:27 PM [facility] Immature Granulocytes Relative 0.8 % LAB HEMETOLOGY METHOD 12/10/2024 12:27 PM [facility] Neutrophils Absolute 5.85 1.50 - 7.00 K/mcL LAB HEMETOLOGY METHOD 12/10/2024 12:27 PM [facility] Lymphocytes Absolute 3.84 1.00 - 5.00 K/mcL LAB HEMETOLOGY METHOD 12/10/2024 12:27 PM [facility] Monocytes Absolute 0.83 0.20 - 1.00 K/mcL LAB HEMETOLOGY METHOD 12/10/2024 12:27 PM [facility] Eosinophils Absolute 0.21 0.00 - 0.50 K/mcL LAB HEMETOLOGY METHOD 12/10/2024 12:27 PM [facility] Basophils Absolute 0.07 0.00 - 0.20 K/mcL LAB HEMETOLOGY METHOD 12/10/2024 12:27 PM [facility] Immature Granulocytes Absolute 0.09(H) 0.00 - 0.03 K/mcL LAB HEMETOLOGY METHOD 12/10/2024 12:27 PM [facility] Blood Venous blood specimen / Unknown Venipuncture / Unknown 12/10/2024 11:47 AM EDT 12/10/2024 12:05 PM EDT us Santino Soliman DO LAB BLOOD ORDERABLES Final Result [facility] [address] [place] [address], * (ABNORMAL) Comprehensive metabolic panel (12/10/2024 11:47 AM EDT) Sodium 144 133 - 145 mmol/L LAB CHEMISTRY METHOD 12/10/2024 12:37 PM [facility] Potassium 3.7 3.5 - 5.5 mmol/L LAB CHEMISTRY METHOD 12/10/2024 12:37 PM [facility] Chloride 110 96 - 110 mmol/L LAB CHEMISTRY METHOD 12/10/2024 12:37 PM [facility] CO2 27 21 - 32 mmol/L LAB CHEMISTRY METHOD 12/10/2024 12:37 PM [facility] Anion Gap 7 3 - 11 LAB CHEMISTRY METHOD 12/10/2024 12:37 PM [facility] Glucose 82 70 - 100 mg/dL LAB CHEMISTRY METHOD 12/10/2024 12:37 PM [facility] BUN 15 5 - 25 mg/dL LAB CHEMISTRY METHOD 12/10/2024 12:37 PM [facility] Creatinine 0.60 0.50 - 1.10 mg/dL LAB CHEMISTRY METHOD 12/10/2024 12:37 PM [facility] eGFR 111 >=60 mL/min/1. 73m2 LAB CHEMISTRY METHOD 12/10/2024 12:37 PM T [facility] Comment:Calculation based on the Chronic Kidney Disease Epidemiology Collaboration (CKD-EPI) equation refit without adjustment for race. BUN/Creatinine Ratio 25.0 LAB CHEMISTRY METHOD 12/10/2024 12:37 PM [facility] Calcium 9.4 8.5 - 10.5 mg/dL LAB CHEMISTRY METHOD 12/10/2024 12:37 PM [facility] AST (SGOT) 15 10 - 42 unit/L LAB CHEMISTRY METHOD 12/10/2024 12:37 PM [facility] ALT (SGPT) 40 10 - 60 unit/L LAB CHEMISTRY METHOD 12/10/2024 12:37 PM [facility] Alkaline Phosphatase 128(H) 42 - 121 unit/L LAB CHEMISTRY METHOD 12/10/2024 12:37 PM [facility] Total Protein 7.2 6.0 - 8.0 g/dL LAB CHEMISTRY METHOD 12/10/2024 12:37 PM [facility] Albumin 3.6 3.2 - 5.0 g/dL LAB CHEMISTRY METHOD 12/10/2024 12:37 PM [facility] Total Bilirubin 0.7 0.0 - 1.4 mg/dL LAB CHEMISTRY METHOD 12/10/2024 12:37 PM [facility] Blood Venous blood specimen / Unknown Venipuncture / Unknown 12/10/2024 11:47 AM EDT 12/10/2024 12:05 PM EDT us Santino Soliman DO LAB BLOOD ORDERABLES Final Result [facility] [address] [place] [address], [place] [phone] from Last 3 Months Insurance MEDICAID ADVANTAGE Care Teams Test Baker Relationship Specialty Start Date End Date Kirti Fu MD [address] [place] [address] PCP - General 09/01/21
[2024-12-15 18:53] LABS: Appearance Urine Cloudy; Color Urine Yellow; Glucose Urine UA Negative (Negative); Leukocyte Esterase Urine Small (1+) (Negative); Nitrite Urine Negative (Negative); Specific Gravity - Urine >= 1.030 (1.005-1.025); UMIC TRIGGER UACC YES; Urine Blood Trace (Negative); Urine Ketones Trace mg/dL (Negative); Urine Protein 30 (1+) mg/dL (Neg-Trace)
[2024-12-15 19:03] LABS: Bacteria Urine 1+ (None Seen); UACC Culture Trigger YES
[2024-12-15 19:05] LABS: MANUAL DIFF FLAG NO
[2024-12-15 19:07] LABS: Basophils Absolute Auto 0.1 X10*3/uL (0.0-0.2); Basophils Percent Auto 0.6 % (0-2); Eosinophils Absolute Auto 0.2 X10*3/uL (0.0-0.4); Eosinophils Percent Auto 1.7 % (0-4); Hematocrit 41.3 % (37.0-47.0); Hemoglobin 13.9 g/dl (12.0-16.0); Imm Gran Abs Auto 0.12 X10*3/uL (0.00-0.03); Imm Gran Pct Auto 0.8 % (0.0-0.4); Lymphocytes Absolute Auto 4.3 X10*3/uL (1.2-4.9); Mean Corpuscular HGB Conc 33.7 g/dl (31.0-35.0); Mean Corpuscular Hemoglobin 30.5 pg (27.0-33.0); Mean Corpuscular Volume 90.8 fL (80.0-98.0); Mean Platelet Volume 10.8 fL (9.4-12.3); Monocytes Absolute Auto 0.7 X10*3/uL (0.1-1.2); Monocytes Percent Auto 5.2 % (2-11); Neutrophils Absolute Auto 8.8 x10*3/uL (2.0-8.3); Neutrophils Percent Auto 61.7 % (45-73); Platelet Count 363 X10*3/uL (160-400); Red Blood Count 4.55 X10*6/uL (4.20-5.50); Red Cell Distribution Width 13.5 % (11.0-16.0); White Blood Count 14.2 X10*3/uL (4.8-10.8)
[2024-12-15 19:08] LABS: UPreg QC Valid YES; Urine Pregnancy NEGATIVE (NEGATIVE)
[2024-12-15 19:36] LABS: Alanine Aminotransferase 39 U/L (0-31); Albumin Level 4.3 g/dL (3.5-5.0); Alkaline Phosphatase 104 U/L (39-117); Anion Gap 12 (12-20); Aspartate Amino Transferase 29 U/L (5-31); Bilirubin Total 0.4 mg/dL (0.0-1.0); Blood Urea Nitrogen 27 mg/dL (9-16); Calcium 9.5 mg/dL (8.4-10.2); Carbon Dioxide 25 mmol/L (22-29); Chloride 107 mmol/L (96-108); Creatinine Clr Calc Pharmacy 96.7; Estimated Glomerular Filt Rate > 60; Glucose Random 148 mg/dL (60-115); Potassium 3.4 mmol/L (3.3-5.1); Sodium 141 mmol/L (135-145); Total Protein 7.1 g/dL (6.5-8.0)
[2024-12-15 19:56] VITALS: BP 145/75; PULSE 60; RESP 16; TEMP 36.6; O2SAT 97
[2024-12-15] MEDS: 0.9 % Sodium Chloride 1,000 ML 999 ML IV (20:00)
[2024-12-15] MEDS: Ketorolac Tromethamine 30 MG/ML VIAL IVPUSH (20:01)
[2024-12-15 22:23] VITALS: BP 152/99; PULSE 62; RESP 16; O2SAT 96
[2024-12-15 22:25] VITALS: BP 0/0; PULSE 0; RESP 0; TEMP -17.7; TEMP 0; O2SAT 0
== END 2024-12-15 22:26 | disposition home or self-care (01) ==
PROVIDERS: Physician Assistant; Emergency Provider Emergency Medicine; PCP Internal Medicine
DX: N20.0 Calculus of kidney (principal); M54.9 Dorsalgia, unspecified
CPT/HCPCS: 36415; 72072; 72100; 74176; 80053; 81001; 81025; 85025; 87086; 96361; 96374; 99284; J1885

== ENCOUNTER → 2024-12-15 16:46 | Outpatient (BNV) | payer OTHER, SELFPAY | PROVIDERS: PCP Internal Medicine; Visit Provider Radiology Diagnostic Radiology | DX: N20.0 Calculus of kidney (principal); M51.34 Other intervertebral disc degeneration, thoracic region; M46.96 Unspecified inflammatory spondylopathy, lumbar region | CPT/HCPCS: 72072; 72100; 74176 ==

== ENCOUNTER 2025-02-07 13:39 | Outpatient (AMB) | payer OTHER, SELFPAY ==
--- OUTSIDE RECORDS SUMMARY | 2025-02-07 13:42 | XMS_ITS | Clinical Summary ---
Author Organization 175 [facility] Address [address] [place] [address] Phone Care Team Providers Care Brick Pitcher Name Role Phone Kirti Fu MD Primary Care Provider [phone] Allergies Active Allergy Reactions Criticality Noted Date [...] Max Daily Amount: 5 mg 5 Active oxyCODONE (OXY-IR) 5 mg immediate release capsule Take 1 capsule (5 mg total) by mouth every 6 (six) hours if needed for severe pain. Max Daily Amount: 20 mg 4 capsule 5 Active Active Problems Problem Noted Date Diagnosed Date Class 3 severe obesity with serious comorbidity and body mass index (BMI) of 40.0 to 44.9 in adult ([facility] V24, [facility] V28) 12/30/2024 Encounters Date Type Department Care Team Description 12/30/2024 2:00 PM EDT Nutrition Bariatric Surgery - [place] 175 [facility] [address] [place] [address] Class 3 severe obesity with serious comorbidity and body mass index (BMI) of 40.0 to 44.9 in adult, unspecified obesity type ([facility] V24, [facility] V28) (Primary Dx) 12/11/2024 12:35 AM EDT - 12/11/2024 3:15 AM EDT Emergency [facility] Emergency [address] [place] [id number] Strain of thoracic back region (Primary Dx) Discharge Disposition: Home or Self Care from Last 3 Months Social History Tobacco [...] EDT Inhaled Oxygen Concentration - - Weight 103 kg (228 lb) 12/30/2024 1:49 PM EDT Height 160 cm (5' 3 ) 12/10/2024 11:14 AM EDT Body Mass Index 40.39 12/10/2024 11:14 AM EDT Plan of Treatment Upcoming Encounters Date Type Department Care Team (Late st Contact Info) Description 03/26/2025 2:30 PM EDT Nutrition Bariatric Surgery - [place] 175 [facility] [address] [place] [address] Camille Mei, RD 175 [facility] [address] [place] [address] Health Maintenance Due Date Last Done Comments Breast Cancer Screening 1976 DTaP,Tdap,and Td Vaccines (1 - Tdap) 09/17/1995 Hepatitis B Vaccines (1 of 3 - 19+ 3-dose series) 09/17/1995 Cervical Cancer Screening: Pap Smear 1997 Pneumococcal Vaccine: Pediatrics (0 to 5 Years) and At-Risk Patients (6 to 49 Years) (2 of 2 - PCV) 07/22/2014 07/22/2013 Cholesterol Screening (Lipid Panel) 05/21/2022 Colorectal Cancer Screening: Colonoscopy 05/21/2022 HIV Screening 05/21/2022 Hepatitis C Screening 05/21/2022 Social Influencers of Health Screening 05/21/2022 COVID-19 Vaccine ( season) 2024 Depression Screening 06/19/2024 Influenza Vaccine (#1) 2025 8, 06/01/2016, 04/30/2012, Additional history exists Hypertension/CHF/CAD Annual [...] and culture (12/10/2024 11:57 AM EDT) Specific [place] Urine 1.024 1.003 - 1.030 LAB URINALYSIS - AUTOMATED METHOD 12/10/2024 12:49 PM EDT [facility] pH, Urine 6.0 5.0 - 8.0 pH LAB URINALYSIS - AUTOMATED METHOD 12/10/2024 12:49 PM EDT [facility] Leukocytes, Urine Trace(A) Negative LAB URINALYSIS - AUTOMATED METHOD 12/10/2024 12:49 PM [facility] Nitrite, Urine Negative Negative LAB URINALYSIS - AUTOMATED METHOD 12/10/2024 12:49 PM [facility] Protein, Urine 30(A) <=Trace mg/dL LAB URINALYSIS - AUTOMATED METHOD 12/10/2024 12:49 PM [facility] Glucose, Urine Negative Negative mg/dL LAB URINALYSIS - AUTOMATED METHOD 12/10/2024 12:49 PM [facility] Ketones, Urine Trace(A) Negative mg/dL LAB URINALYSIS - AUTOMATED METHOD 12/10/2024 12:49 PM [facility] Urobilinogen, Urine 1.0 0.2 - 1.0 mg/dL LAB URINALYSIS - AUTOMATED METHOD 12/10/2024 12:49 PM [facility] Bilirubin, Urine Negative Negative LAB URINALYSIS - AUTOMATED METHOD 12/10/2024 12:49 PM [facility] Blood, Urine Negative Negative LAB URINALYSIS - AUTOMATED METHOD 12/10/2024 12:49 PM [facility] RBC, Urine 4.0 0 - 4 /HPF LAB URINALYSIS - AUTOMATED METHOD 12/10/2024 12:49 PM [facility] WBC, Urine 6.8(H) 0 - 4 /HPF LAB URINALYSIS - AUTOMATED METHOD 12/10/2024 12:49 PM [facility] Squamous Epithelial, Urine >100(H) 0 - 60 /LPF LAB URINALYSIS - AUTOMATED METHOD 12/10/2024 12:49 PM [facility] Bacteria, Urine Negative Negative /HPF LAB URINALYSIS - AUTOMATED METHOD 12/10/2024 12:49 PM [facility] Hyaline Casts, Urine 0.8 0 - 3 /LPF LAB URINALYSIS - AUTOMATED METHOD 12/10/2024 12:49 PM [facility] Urine Urine specimen obtained by clean catch procedure / Unknown Non-blood Collection / Unknown 12/10/2024 11:57 AM EDT 12/10/2024 12:05 PM EDT us Santino Soliman DO LAB URINE ORDERABLES Final Result Performing Organization Address [facility]/ZIP Co de Phone Number [facility] [address] [place] [address], [place] [phone] * [place] urine culture tube (12/10/2024 11:57 AM EDT) Extra Tube Hold for add-ons. 12/10/2024 2:01 PM EDT [facility] Comment:Auto resulted. Urine Urine specimen obtained by clean catch procedure / Unknown Non-blood Collection / Unknown 12/10/2024 11:57 AM EDT 12/10/2024 12:05 PM EDT us Santino Soliman DO [facility] URINE ORDERABLES Final Result Performing Organization Address [facility] de Phone Number [facility] [address] [place] [address], [place] [phone] * Culture urine (12/10/2024 11:57 AM EDT) Culture, Urine No growth 12/11/2024 7:49 AM EDT [facility] Urine Urine specimen obtained by clean catch procedure / Unknown Non-blood Collection / Unknown 12/10/2024 11:57 AM EDT 12/10/2024 12:49 PM EDT us Santino Soliman DO LAB MICROBIOLOGY - GENERAL ORDERABLES Final Result Performing Organization Address [facility] Co de Phone Number [facility] [address] [place] [address], [place] [phone] * (ABNORMAL) CBC auto differential (12/10/2024 11:47 AM EDT) [facility] Signature WBC 10.9(H) 4.8 - 10.8 K/mcL LAB HEMETOLOGY METHOD 12/10/2024 12:27 PM [facility] RBC 4.50 3.80 - 4.80 M/mcL LAB HEMETOLOGY METHOD 12/10/2024 12:27 PM [facility] Hemoglobin 13.4 11.5 - 16.0 g/dL LAB HEMETOLOGY METHOD 12/10/2024 12:27 PM [facility] Hematocrit 41.5 35.0 - 47.0 % LAB HEMETOLOGY METHOD 12/10/2024 12:27 PM [facility] MCV 93.0 79.0 - 98.0 FL LAB HEMETOLOGY METHOD 12/10/2024 12:27 PM [facility] MCH 30.0 27.0 - 32.0 pcg LAB HEMETOLOGY METHOD 12/10/2024 12:27 PM [facility] MCHC 32.3 32.0 - 37.0 g/dL LAB HEMETOLOGY METHOD 12/10/2024 12:27 PM [facility] RDW 13.5 11.0 - 15.0 % LAB HEMETOLOGY METHOD 12/10/2024 12:27 PM [facility] Platelets 335 130 - 400 K/mcL LAB HEMETOLOGY METHOD 12/10/2024 12:27 PM [facility] MPV 10.8 7.0 - 11.0 FL LAB HEMETOLOGY METHOD 12/10/2024 12:27 PM [facility] NRBC 0.0 <1.0 % LAB HEMETOLOGY METHOD 12/10/2024 12:27 PM [facility] NRBC Absolute 0.00 <0.10 K/mcL LAB HEMETOLOGY METHOD 12/10/2024 12:27 PM [facility] Neutrophils Relative 53.8 % LAB HEMETOLOGY METHOD 12/10/2024 12:27 PM [facility] Lymphocytes Relative 35.3 % LAB HEMETOLOGY METHOD 12/10/2024 12:27 PM [facility] Monocytes Relative 7.6 % LAB HEMETOLOGY METHOD 12/10/2024 12:27 PM [facility] Eosinophils Relative 1.9 % LAB HEMETOLOGY METHOD 12/10/2024 12:27 PM [facility] Basophils Relative 0.6 % LAB HEMETOLOGY METHOD 12/10/2024 12:27 PM [facility] Immature Granulocytes Relative 0.8 % LAB HEMETOLOGY METHOD 12/10/2024 12:27 PM [facility] Neutrophils Absolute 5.85 1.50 - 7.00 K/mcL LAB HEMETOLOGY METHOD 12/10/2024 12:27 PM [facility] Lymphocytes Absolute 3.84 1.00 - 5.00 K/mcL LAB HEMETOLOGY METHOD 12/10/2024 12:27 PM [facility] Monocytes Absolute 0.83 0.20 - 1.00 K/mcL LAB HEMETOLOGY METHOD 12/10/2024 12:27 PM [facility] Eosinophils Absolute 0.21 0.00 - 0.50 K/mcL LAB HEMETOLOGY METHOD 12/10/2024 12:27 PM [facility] Basophils Absolute 0.07 0.00 - 0.20 K/mcL LAB HEMETOLOGY METHOD 12/10/2024 12:27 PM [facility] Immature Granulocytes Absolute 0.09(H) 0.00 - 0.03 K/mcL LAB HEMETOLOGY METHOD 12/10/2024 12:27 PM [facility] Blood Venous blood specimen / Unknown Venipuncture / Unknown 12/10/2024 11:47 AM EDT 12/10/2024 12:05 PM EDT Santino Maxine Soliman DO LAB BLOOD ORDERABLES Final Result [facility] [address] [place] [address], * (ABNORMAL) Comprehensive metabolic panel (12/10/2024 11:47 AM EDT) Sodium 144 133 - 145 mmol/L LAB CHEMISTRY METHOD 12/10/2024 12:37 PM [facility] Potassium 3.7 3.5 - 5.5 mmol/L LAB CHEMISTRY METHOD 12/10/2024 12:37 PM [facility] Chloride 110 96 - 110 mmol/L LAB CHEMISTRY METHOD 12/10/2024 12:37 PM [facility] CO2 27 21 - 32 mmol/L LAB CHEMISTRY METHOD 12/10/2024 12:37 PM [facility] Anion Gap 7 3 - 11 LAB CHEMISTRY METHOD 12/10/2024 12:37 PM [facility] Glucose 82 70 - 100 mg/dL LAB CHEMISTRY METHOD 12/10/2024 12:37 PM [facility] BUN 15 5 - 25 mg/dL LAB CHEMISTRY METHOD 12/10/2024 12:37 PM [facility] Creatinine 0.60 0.50 - 1.10 mg/dL LAB CHEMISTRY METHOD 12/10/2024 12:37 PM [facility] eGFR 111 >=60 mL/min/1. 73m2 LAB CHEMISTRY METHOD 12/10/2024 12:37 PM [facility] Comment:Calculation based on the Chronic Kidney Disease Epidemiology Collaboration (CKD-EPI) equation refit without adjustment for race. BUN/Creatinine Ratio 25.0 LAB CHEMISTRY METHOD 12/10/2024 12:37 PM EDT [facility] Calcium 9.4 8.5 - 10.5 mg/dL LAB CHEMISTRY METHOD 12/10/2024 12:37 PM [facility] AST (SGOT) 15 10 - 42 unit/L LAB CHEMISTRY METHOD 12/10/2024 12:37 PM [facility] ALT (SGPT) 40 10 - 60 unit/L LAB CHEMISTRY METHOD 12/10/2024 12:37 PM EDT [facility] Alkaline Phosphatase 128(H) 42 - 121 unit/L LAB CHEMISTRY METHOD 12/10/[facility]24 12:[facility] Total Protein 7.2 6.0 - 8.0 g/dL LAB CHEMISTRY METHOD 12/10/2024 12:37 PM [facility] Albumin 3.6 3.2 - 5.0 g/dL LAB CHEMISTRY METHOD 12/10/2024 12:37 PM [facility] Total Bilirubin 0.7 0.0 - 1.4 mg/dL LAB CHEMISTRY METHOD 12/10/2024 12:37 PM [facility] Blood Venous blood specimen / Unknown Venipuncture / Unknown 12/10/2024 11:47 AM EDT 12/10/2024 12:05 PM EDT us Santino Soliman DO LAB BLOOD ORDERABLES Final Result [facility] [address] [place] [address], [place] [phone] from Last 3 Months Insurance [employer] [address] [place] [address] Care Teams Brick Pitcher Relationship Specialty Start Date End Date Kirti Fu MD [address] [place] [address] PCP - General 09/01/21
--- NOTE | 2025-02-07 13:43 | MHC.OFFVIS ---
Intake Visit Reasons: kidney stone Intake Note: New Patient is present for kidney stones Urology Rx:Tamsulosin Blood Thinners:none Imaging completed: 12/15/[address] Policy Manager Required: No Accompanied by: Self / Same As Patient Allergies cortisone (CORTISONE) Allergy (Severe, Verified 02/07/25 13:44) Shortness of Breath HPI Comments Details: Maria Luisa is a pleasant Lithuanian-speaking female. She is a patient of Dr. Oleary. They are seen for the following urologic conditions - nephrolithiasis Has Lithuanian translation provided by qualified medical malpractice paralegal Had a tender to emergency room with central back pain which was musculoskeletal in nature Imaging showed stone Nephrolithiasis She presents for - initial evaluation for nephrolithiasis, Initial presentation through emergency room with left-sided central back pain consistent with musculoskeletal pain Prior history of stones with ESWL last performed 2018 Presenting symptoms included flank pain with associated nausea Imaging - 01/10 CT scan 8 mm lower pole left stone Laboratory investigations - creatinine 0.8 Stone composition - unknown 24 hour urine evaluation - none on file Interventions - prior ESWL Current therapeutic plan - she would like to move ahead with ESWL [facility] Social History Alcohol intake: former Review of Systems Const Denies chills and Denies fever(s) Card Reports no additional complaints and Denies syncope Resp Denies cough GI Denies abdominal pain and Denies heartburn Reports as per HPI and Denies change in libido Neuro Denies syncope Psych Denies change in libido Endo Denies change in libido Physical Exam Const General: cooperative, healthy appearing, comfortable and no acute distress Orientation/consciousness: patient oriented x3 HEENT Face and sinus: Yes normal facial exam Mouth: moist mucous membranes Neck Neck: Yes normal visual inspection, Yes full ROM and Yes trachea midline Chest Chest palpation & inspection: normal inspection of the chest Resp Effort & Inspection: normal respiratory effort, able to speak in complete sentences and no respiratory distress GI Inspection: Yes normal to inspection Back/Spine/Pelvis Cervical Spine: normal cervical lordosis Thoracic/Lumbar Spine: thoracic and lumbar spine normal to inspection Skin General skin exam: no rashes or lesions noted Neuro General: patient oriented x3, gait normal, tone normal and moves all extremities Extrem General: Yes normal to inspection and Yes capillary refill normal Results AMB Urinalysis, Automated UA Leukoctes 15 Ondina/uL Last Edit by DIANA Lemus on 02/07/25 13:55 UA Nitrite Negative Last Edit by Vicky Patel, [facility] on 02/07/25 13:55 UA Urobilinogen 0.2 mg/dL Last Edit by Vicky Patel, [facility] on 02/07/25 13:55 UA Protein 30 mg/dL Last Edit by Vicky Patel, [facility] on 02/07/25 13:55 UA pH 6.0 Last Edit by Vicky Patel, [facility] on 02/07/25 13:55 UA Blood 10 Nic/uL Last Edit by Vicky Patel, [facility] on 02/07/25 13:55 UA Specific [place] 1.020 Last Edit by Vicky Patel, [facility] on 02/07/25 13:55 UA Ketone Negative Last Edit by Vicky Patel [facility] on 02/07/25 13:55 UA Bilirubin 0 mg/dL Last Edit by iVcky Patel, [facility] on 02/07/25 13:55 UA Glucose 0 mg/dL Last Edit by Vicky Patel [facility] on 02/07/25 13:55 Results Reviewed Results Reviewed: Laboratory Last Values Urine pH (Auto) 6.0 02/07/25 13:53 Specific [place] (Auto) 1.020 02/07/25 13:53 Urine Protein (Auto) 30 mg/dL 02/07/25 13:53 Glucose (UA)(Auto) 0 mg/dL 02/07/25 13:53 Urine Ketones (Auto) Negative 02/07/25 13:53 Urine Blood (Auto) 10 Nic/uL 02/07/25 13:53 Urine Nitrite (Auto) Negative 02/07/25 13:53 Urine Bilirubin (Auto) 0 mg/dL 02/07/25 13:53 Urine Urobilinogen (Auto) 0.2 mg/dL 02/07/25 13:53 Leukocyte Esterase (Auto) 15 Ondina/uL 02/07/25 13:53 Assessment & Plan Assessment & Plan (1) Calculus, kidney: Code(s): N20.0 - Calculus of kidney Category: Medical Plan Extracorporeal Shock Wave Lithotripsy We discussed the nature of the decision and reasonable alternatives for performing the above surgery. Interventions include chemical dissolution, ESWL, ureteroscopy with laser lithotripsy and stent placement, PCNL. Options such as medical therapy were discussed. The relative uncertainties and benefits related to each alternate procedure were adequately discussed. General surgical risks including, but not limited to, pain, bleeding, infection, myocardial infarction, pulmonary embolus, deep vein thrombosis and cerebrovascular accident which may result in further hospitalization were discussed. Full disclosure of the procedure as well as all major risks, benefits and complications were discussed including but not limited to risks of bleeding, injury to the kidney with hematoma or betty-hematoma, failure to fragments stone, potential for ureteric obstruction from stone passage and need for secondary procedures. There is a small long-term risk of hypertension and a question allison of diabetes. Success rate of fragmentation and passage is approximately 70- 75%. This is compared to the risks and benefits for ureteroscopy which has a higher success rate but is a more invasive procedure. The success rate of the procedure was discussed. Success of the procedure in the short-term does not necessarily guarantee that long-term success will be maintained. Suitable follow up will need to be maintained. The patient showed understanding of the discussion as well as the typical recovery time, and the outpatient nature of this procedure. Opportunity was given for questions. Repeat-back protocol used to confirm understanding. They wish to proceed with left ESWL Orders: Orders AMB Urinalysis Automated Today Boby Thomas MD Z13.9 - Encounter for screening, unspecified Medications: Discontinued ibuprofen Discontinued Reason: Patient no longer taking 400 mg PO TID PRN 30 tabs 0RF fever or pain oxycodone Partial Fill upon patient request. Discontinued Reason: Patient no longer taking 5 mg PO Q4H PRN 10 caps 0RF pain cephalexin Discontinued Reason: Patient no longer taking 500 mg PO QID 28 caps 0RF ketorolac maximum total duration of 5 days from all oral, intranasal, or parenteral formulations. Patient received intramuscular Toradol here in the emergency department Discontinued Reason: Patient no longer taking 10 mg PO Q6H PRN 20 tabs 0RF pain DIANA Lemus tamsulosin (Flomax) Discontinued Reason: Patient no longer taking 0.4 mg PO DAILY 10 caps 0RF Coding Level of Care Code New Pt Level 4 (45999) Diagnoses Calculus, kidney N20.0
== END 2025-02-07 14:23 | disposition home or self-care (01) ==
LOC: HO.HUSH 13:40
PROVIDERS: PCP Internal Medicine; Visit Provider Urology
DX: N20.0 Calculus of kidney (principal); Z13.9 Encounter for screening, unspecified
CPT/HCPCS: 99204

== ENCOUNTER → 2025-02-07 13:39 | Outpatient (BNVA) | payer OTHER, SELFPAY | PROVIDERS: PCP Internal Medicine; Visit Provider Urology | DX: N20.0 Calculus of kidney (principal) | CPT/HCPCS: 81003; 99202 ==

== ENCOUNTER 2025-02-19 07:22 | Day surgery (SDC) | payer OTHER, SELFPAY ==
--- OUTSIDE RECORDS SUMMARY | 2025-02-11 14:40 | XMS_ITS | Clinical Summary ---
Author Organization 175 [facility] Address [address] [place] [address] Phone Care Team Providers Care Software Design Manager Name Role Phone Kirti Fu MD Primary Care Provider [phone] Allergies Active Allergy Reactions Criticality Noted Date [...] (BMI) of 40.0 to 44.9 in adult ([facility] V24, [facility] V28) 12/30/2024 Encounters Date Type Department Care Team Description 12/30/2024 2:00 PM EDT Nutrition Bariatric Surgery - [place] [facility] [address] [place] [address] Class 3 severe obesity with serious comorbidity and body mass index (BMI) of 40.0 to 44.9 in adult, unspecified obesity type ([facility] V24, [facility] V28) (Primary Dx) 12/11/2024 12:35 AM EDT - 12/11/2024 3:15 AM EDT Emergency [facility] Emergency [address] [place] [id number] Strain of thoracic back region (Primary Dx) [...] 2:30 PM EDT Nutrition Bariatric Surgery - [place] 175 [facility] [address] [place] [address] Camille Mei, RD 175 [facility] [address] [place] [address] Health Maintenance Due Date Last [...] and culture (12/10/2024 11:57 AM EDT) Specific [place] Urine 1.024 1.003 - 1.030 LAB URINALYSIS - AUTOMATED METHOD 12/10/2024 12:49 PM EDT [facility] pH, Urine 6.0 5.0 - 8.0 pH LAB URINALYSIS - AUTOMATED METHOD 12/10/2024 12:49 PM EDT [facility] Leukocytes, Urine Trace(A) Negative LAB URINALYSIS - AUTOMATED METHOD 12/10/2024 12:49 PM [facility] Nitrite, Urine Negative Negative LAB URINALYSIS - AUTOMATED METHOD 12/10/2024 12:49 PM [facility] Protein, Urine 30(A) <=Trace mg/dL LAB URINALYSIS - AUTOMATED METHOD 12/10/2024 12:49 PM [facility] Glucose, Urine Negative Negative mg/dL LAB URINALYSIS - AUTOMATED METHOD 12/10/2024 12:49 PM [facility] Ketones, Urine Trace(A) Negative mg/dL LAB URINALYSIS - AUTOMATED METHOD 12/10/2024 12:49 PM [facility] Urobilinogen, Urine 1.0 0.2 - 1.0 mg/dL LAB URINALYSIS - AUTOMATED METHOD 12/10/2024 12:49 PM [facility] Bilirubin, Urine Negative Negative LAB URINALYSIS - AUTOMATED METHOD 12/10/2024 12:49 PM [facility] Blood, Urine Negative Negative LAB URINALYSIS - AUTOMATED METHOD 12/10/2024 12:49 PM [facility] RBC, Urine 4.0 0 - 4 /HPF LAB URINALYSIS - AUTOMATED METHOD 12/10/2024 12:49 PM [facility] WBC, Urine 6.8(H) 0 - 4 /HPF LAB URINALYSIS - AUTOMATED METHOD 12/10/2024 12:49 PM [facility] Squamous Epithelial, Urine >100(H) 0 - 60 /LPF LAB URINALYSIS - AUTOMATED METHOD 12/10/2024 12:49 PM [facility] Bacteria, Urine Negative Negative /HPF LAB URINALYSIS - AUTOMATED METHOD 12/10/2024 12:49 PM [facility] Hyaline Casts, Urine 0.8 0 - 3 /LPF LAB URINALYSIS - AUTOMATED METHOD 12/10/2024 12:49 PM [facility] Urine Urine specimen obtained by clean catch procedure / Unknown Non-blood Collection / Unknown 12/10/2024 11:57 AM EDT 12/10/2024 12:05 PM EDT us Santino Soliman DO LAB URINE ORDERABLES Final Result Performing Organization Address [facility]/ZIP Co de Phone Number [facility] [address] [place] [address], [place] [phone] * [place] urine culture tube (12/10/2024 11:57 AM EDT) Extra Tube Hold for add-ons. 12/10/2024 2:01 PM EDT [facility] Comment:Auto resulted. Urine Urine specimen obtained by clean catch procedure / Unknown Non-blood Collection / Unknown 12/10/2024 11:57 AM EDT 12/10/2024 12:05 PM EDT us Santino Soliman DO [facility] URINE ORDERABLES Final Result Performing Organization Address [facility] de Phone Number [facility] [address] [place] [address], [place] [phone] * Culture urine (12/10/2024 11:57 AM EDT) Culture, Urine No growth 12/11/2024 7:49 AM EDT [facility] Urine Urine specimen obtained by clean catch procedure / Unknown Non-blood Collection / Unknown 12/10/2024 11:57 AM EDT 12/10/2024 12:49 PM EDT us Santino Soliman DO LAB MICROBIOLOGY - GENERAL ORDERABLES Final Result Performing Organization Address [facility] Co de Phone Number [facility] [address] [place] [address], [place] [phone] * (ABNORMAL) CBC auto differential (12/10/2024 11:47 AM EDT) [facility] Signature WBC 10.9(H) 4.8 - 10.8 K/mcL LAB HEMETOLOGY METHOD 12/10/2024 12:27 PM [facility] RBC 4.50 3.80 - 4.80 M/mcL LAB HEMETOLOGY METHOD 12/10/2024 12:27 PM [facility] Hemoglobin 13.4 11.5 - 16.0 g/dL LAB HEMETOLOGY METHOD 12/10/2024 12:27 PM [facility] Hematocrit 41.5 35.0 - 47.0 % LAB HEMETOLOGY METHOD 12/10/2024 12:27 PM [facility] MCV 93.0 79.0 - 98.0 FL LAB HEMETOLOGY METHOD 12/10/2024 12:27 PM [facility] MCH 30.0 27.0 - 32.0 pcg LAB HEMETOLOGY METHOD 12/10/2024 12:27 PM [facility] MCHC 32.3 32.0 - 37.0 g/dL LAB HEMETOLOGY METHOD 12/10/2024 12:27 PM [facility] RDW 13.5 11.0 - 15.0 % LAB HEMETOLOGY METHOD 12/10/2024 12:27 PM [facility] Platelets 335 130 - 400 K/mcL LAB HEMETOLOGY METHOD 12/10/2024 12:27 PM [facility] MPV 10.8 7.0 - 11.0 FL LAB HEMETOLOGY METHOD 12/10/2024 12:27 PM [facility] NRBC 0.0 <1.0 % LAB HEMETOLOGY METHOD 12/10/2024 12:27 PM [facility] NRBC Absolute 0.00 <0.10 K/mcL LAB HEMETOLOGY METHOD 12/10/2024 12:27 PM [facility] Neutrophils Relative 53.8 % LAB HEMETOLOGY METHOD 12/10/2024 12:27 PM [facility] Lymphocytes Relative 35.3 % LAB HEMETOLOGY METHOD 12/10/2024 12:27 PM [facility] Monocytes Relative 7.6 % LAB HEMETOLOGY METHOD 12/10/2024 12:27 PM [facility] Eosinophils Relative 1.9 % LAB HEMETOLOGY METHOD 12/10/2024 12:27 PM [facility] Basophils Relative 0.6 % LAB HEMETOLOGY METHOD 12/10/2024 12:27 PM [facility] Immature Granulocytes Relative 0.8 % LAB HEMETOLOGY METHOD 12/10/2024 12:27 PM [facility] Neutrophils Absolute 5.85 1.50 - 7.00 K/mcL LAB HEMETOLOGY METHOD 12/10/2024 12:27 PM [facility] Lymphocytes Absolute 3.84 1.00 - 5.00 K/mcL LAB HEMETOLOGY METHOD 12/10/2024 12:27 PM [facility] Monocytes Absolute 0.83 0.20 - 1.00 K/mcL LAB HEMETOLOGY METHOD 12/10/2024 12:27 PM [facility] Eosinophils Absolute 0.21 0.00 - 0.50 K/mcL LAB HEMETOLOGY METHOD 12/10/2024 12:27 PM [facility] Basophils Absolute 0.07 0.00 - 0.20 K/mcL LAB HEMETOLOGY METHOD 12/10/2024 12:27 PM [facility] Immature Granulocytes Absolute 0.09(H) 0.00 - 0.03 K/mcL LAB HEMETOLOGY METHOD 12/10/2024 12:27 PM [facility] Blood Venous blood specimen / Unknown Venipuncture / Unknown 12/10/2024 11:47 AM EDT 12/10/2024 12:05 PM EDT Santino Maxine Soliman DO LAB BLOOD ORDERABLES Final Result [facility] [address] [place] [address], * (ABNORMAL) Comprehensive metabolic panel (12/10/2024 11:47 AM EDT) Sodium 144 133 - 145 mmol/L LAB CHEMISTRY METHOD 12/10/2024 12:37 PM [facility] Potassium 3.7 3.5 - 5.5 mmol/L LAB CHEMISTRY METHOD 12/10/2024 12:37 PM [facility] Chloride 110 96 - 110 mmol/L LAB CHEMISTRY METHOD 12/10/2024 12:37 PM [facility] CO2 27 21 - 32 mmol/L LAB CHEMISTRY METHOD 12/10/2024 12:37 PM [facility] Anion Gap 7 3 - 11 LAB CHEMISTRY METHOD 12/10/2024 12:37 PM [facility] Glucose 82 70 - 100 mg/dL LAB CHEMISTRY METHOD 12/10/2024 12:37 PM [facility] BUN 15 5 - 25 mg/dL LAB CHEMISTRY METHOD 12/10/2024 12:37 PM [facility] Creatinine 0.60 0.50 - 1.10 mg/dL LAB CHEMISTRY METHOD 12/10/2024 12:37 PM [facility] eGFR 111 >=60 mL/min/1. 73m2 LAB CHEMISTRY METHOD 12/10/2024 12:37 PM [facility] Comment:Calculation based on the Chronic Kidney Disease Epidemiology Collaboration (CKD-EPI) equation refit without adjustment for race. BUN/Creatinine Ratio 25.0 LAB CHEMISTRY METHOD 12/10/2024 12:37 PM EDT [facility] Calcium 9.4 8.5 - 10.5 mg/dL LAB CHEMISTRY METHOD 12/10/2024 12:37 PM [facility] AST (SGOT) 15 10 - 42 unit/L LAB CHEMISTRY METHOD 12/10/2024 12:37 PM [facility] ALT (SGPT) 40 10 - 60 unit/L LAB CHEMISTRY METHOD 12/10/2024 12:37 PM EDT [facility] Alkaline Phosphatase 128(H) 42 - 121 unit/L LAB CHEMISTRY METHOD 12/10/[facility]24 12:[facility] Total Protein 7.2 6.0 - 8.0 g/dL LAB CHEMISTRY METHOD 12/10/2024 12:37 PM [facility] Albumin 3.6 3.2 - 5.0 g/dL LAB CHEMISTRY METHOD 12/10/2024 12:37 PM [facility] Total Bilirubin 0.7 0.0 - 1.4 mg/dL LAB CHEMISTRY METHOD 12/10/2024 12:37 PM [facility] Blood Venous blood specimen / Unknown Venipuncture / Unknown 12/10/2024 11:47 AM EDT 12/10/2024 12:05 PM EDT us Santino Soliman DO LAB BLOOD ORDERABLES Final Result [facility] [address] [place] [address], [place] [phone] from Last 3 Months Insurance [employer] [address] [place] [address] Care Teams Software Design Manager Relationship Specialty Start Date End Date Kirti Fu MD [address] [place] [address] PCP - General 09/01/21
--- NOTE | 2025-02-18 10:13 | HO.ANESPROP2 ---
Documented by User: Rocio Carrizales NP 02/18/25 10:16 HPI - Anesthesia Eval Consult details Narrative: 49yo F for Left Lithotripsy ESW BMI 41 PMFSH Active Problems Active Problems: All Active Problems Calculus, kidney (Chronic) Past Medical History Medical History Prediabetes Depression Asthma Obesity HEAVEN (obstructive sleep apnea) HLD (hyperlipidemia) HTN (hypertension) Surgical History Surgical History Hx of section Hx of hand surgery Social History Social History Alcohol intake: former Patient Tobacco Use Status: Current everyday Tobacco user Meds Allergies Allergy/AdvReac Type Severity Reaction Status Date / Time cortisone (CORTISONE) Allergy Severe Shortness Verified 02/07/25 13:44 of Breath Home Medications ?Medication ?Instructions ?Recorded ?Confirmed ?Last Taken ?Type acetaminophen 500 mg capsule 1,000 mg PO Q6H PRN pain 02/18/25 02/18/25 Unknown History (Mapap (acetaminophen)) albuterol sulfate 2.5 mg/3 mL 1 mg inhalation Q6H PRN wheezing 02/18/25 02/18/25 Unknown History (0.083 %) solution for nebulization amlodipine 10 mg tablet 10 mg PO DAILY 02/18/25 02/18/25 02/19/25 History atorvastatin 20 mg tablet 20 mg PO DAILY 02/18/25 02/18/25 Unknown History cholecalciferol (vitamin D3) 50 50 mcg PO DAILY 02/18/25 02/18/25 Unknown History mcg (2,000 unit) tablet (Vitamin D3) clonazepam 0.5 mg tablet 0.5 mg PO BID PRN Anxiety 02/18/25 02/18/25 Unknown History duloxetine 60 mg capsule,delayed 60 mg PO QAM 02/18/25 02/18/25 Unknown History release metoprolol succinate 25 mg 25 mg PO DAILY 02/18/25 02/18/25 02/19/25 History tablet,extended release 24 hr sennosides 8.6 mg tablet (senna) 17.2 mg PO BEDTIME PRN constipation 02/18/25 02/18/25 Unknown History tizanidine 2 mg tablet 2 mg PO BID PRN Back Pain 02/18/25 02/18/25 Unknown History zolpidem 10 mg tablet 10 mg PO BEDTIME insomnia 02/18/25 02/18/25 Unknown History Exam Pertinent Lab Results Pertinent Lab Results: Laboratory Tests 12/15/24 12/15/24 18:45 19:16 WBC 14.2 H Hgb 13.9 Hct 41.3 Plt Count 363 Sodium 141 Potassium 3.4 Chloride 107 Carbon Dioxide 25 BUN 27 H Creatinine 0.81 Assessment and Plan Assessment Anesthesia Assessment: Chart Reviewed Documented by User: Jayda Bergeron MD 02/19/25 08:57 PMFSH Past Medical History Medical History Prediabetes Depression Asthma Obesity HEAVEN (obstructive sleep apnea) HLD (hyperlipidemia) HTN (hypertension) Family History Family history of problems with anesthesia: No Surgical History Surgical History Hx of section Hx of hand surgery History of Problems with Anesthesia: No Social History Social History Alcohol intake: former Patient Tobacco Use Status: Current everyday Tobacco user Meds Allergies Allergy/AdvReac Type Severity Reaction Status Date / Time cortisone (CORTISONE) Allergy Severe Shortness Verified 02/07/25 13:44 of Breath Home Medications ?Medication ?Instructions ?Recorded ?Confirmed ?Last Taken ?Type acetaminophen 500 mg capsule 1,000 mg PO Q6H PRN pain 02/18/25 02/18/25 Unknown History (Mapap (acetaminophen)) albuterol sulfate 2.5 mg/3 mL 1 mg inhalation Q6H PRN wheezing 02/18/25 02/18/25 Unknown History (0.083 %) solution for nebulization amlodipine 10 mg tablet 10 mg PO DAILY 02/18/25 02/18/25 02/19/25 History atorvastatin 20 mg tablet 20 mg PO DAILY 02/18/25 02/18/25 Unknown History cholecalciferol (vitamin D3) 50 50 mcg PO DAILY 02/18/25 02/18/25 Unknown History mcg (2,000 unit) tablet (Vitamin D3) clonazepam 0.5 mg tablet 0.5 mg PO BID PRN Anxiety 02/18/25 02/18/25 Unknown History duloxetine 60 mg capsule,delayed 60 mg PO QAM 02/18/25 02/18/25 Unknown History release metoprolol succinate 25 mg 25 mg PO DAILY 02/18/25 02/18/25 02/19/25 History tablet,extended release 24 hr sennosides 8.6 mg tablet (senna) 17.2 mg PO BEDTIME PRN constipation 02/18/25 02/18/25 Unknown History tizanidine 2 mg tablet 2 mg PO BID PRN Back Pain 02/18/25 02/18/25 Unknown History zolpidem 10 mg tablet 10 mg PO BEDTIME insomnia 02/18/25 02/18/25 Unknown History Exam Airway Mallampati Class: II TM Dist: >3cm Neck ROM: Limited Heart: rrr Lungs: cta Assessment and Plan Assessment Anesthesia Assessment: Anesthesia Plan Discussed Final Anesthetic Review Family History of Problems with Anesthesia: No History of Problems with Anesthesia: No NPO: Yes ASA Class: III Final Preanesthetic Review: No Changes in Pt Med Stat, Meds/Allgs Chart Reviewed, Consent Obtained/Reviewed and Anes Risks/Benef Reviewed Patient Risk: Intermediate Procedure Risk: Low Anesthetic Plan Anesthetic Plan: MAC: Disposition: Standard PACU
[2025-02-18 15:47] VITALS: BMI 39.8
--- NOTE | ~2025-02-19 | XR_ITS ---
CLINICAL HISTORY: left renal stone Exam: Abdominal radiographs supine view Comparison: CT/SR - ABDOMEN ABD_PEL_WITHOUT (ADULT) - 12/15/24 19:23 EDT Findings: 2 images were obtained. Nonobstructive bowel gas pattern. 3 small mineral densities up to 3 mm overlying upper pole left kidney and large bowel, 6 mm mineral density overlying lower pole left kidney and large bowel. No abnormal calcification of the right kidney. No pneumoperitoneum. IUD in the pelvis about midline. No acute fracture. Unremarkable lung bases. Impression: Left nephrolithiasis versus bowel contents. This document has been electronically signed by: Chelle Jimenez MD on 02/19/2025 08:02:54
[2025-02-19 07:38] VITALS: BP 161/105; PULSE 91; RESP 18; TEMP 36.4; O2SAT 96; BMI 40.8
[2025-02-19 07:51] LABS: UPreg QC Valid YES
[2025-02-19] MEDS: Lactated Ringers 1,000 ML 100 ML IVCONT (08:02)
--- NOTE | 2025-02-19 08:51 | MHC.SHP ---
Pre-Procedural Eval Section A - 24 Hr Update-Section A only Date of Service: 02/19/25 The patient is an INPATIENT: No The patient has been examined within 24 hours of the surgical procedure. The History & Physical has been completed within 30 days and I have reviewed it.: Yes Section B - Complete if H&P > 30 days Chief Complaint: Calculus of kidney, left Allergies: Allergies Allergy/AdvReac Type Severity Reaction Status Date / Time cortisone (CORTISONE) Allergy Severe Shortness Verified 02/07/25 13:44 of Breath Plan Diagnosis/Plan: Unchanged I have reviewed the history and physical and performed a pertinent physical examination on my patient. No changes have occurred unless specified. Left ESWL. Discussed risks to include but not limited to, blood in the urine, bruising to the skin, kidney hematoma, possible need for another procedure if a stone fragment obstructs the ureter while passing, possible need to repeat procedure if stone is not completely fragmented. Time Spent With Patient Time: Total time managing care of this patient today ____ minutes.
--- NOTE | 2025-02-19 08:51 | W.PM.OPN ---
Operative Note Operative Note Date of Service: 02/19/25 Narrative: PreOperative Diagnosis:? ? Left Renal stone Post Operative Diagnosis:? Left? Renal stone Procedure:?Left? ESWL Surgeon:?Dr Lisa Velez Anesthesia:? General Indications for procedure: The patient understands there is a risk of bruising or hematoma to the kidney, infection, and stone migration following the procedure and subsequent intervention may be required.? - Imaging 7 mm x 7 mm stone, lower pole Procedure: After informed consent was verified the patient was brought to the operating room and placed in a supine position.? Anesthesia was performed per protocol. Safety pause time-out was performed. Imaging was displayed in the room and laterality confirmed. ESWL was performed.?The stone was visualized on both fluoroscopy and ultrasound.? Shockwave lithotripsy was performed, with a maximum rate of 120 hertz. After the first 300 shocks a pause for 3 minutes was completed.? A total of 2500 shocks to a maximum of power of 20 with a maximum rate of 120 hertz.? Good fragmentation of the stone was appreciated. The patient tolerated the procedure well and was transferred to the recovery area upon completion. Complications: None
[2025-02-19 09:45] VITALS: BP 167/104; PULSE 91; RESP 20; TEMP 36.1; O2SAT 95
[2025-02-19 09:50] VITALS: BP 170/95; PULSE 87; RESP 20; O2SAT 97
[2025-02-19 09:55] VITALS: BP 160/102; PULSE 80; RESP 16; O2SAT 97
[2025-02-19 10:00] VITALS: BP 165/97; PULSE 76; RESP 16; TEMP 36.1; O2SAT 97
== END 2025-02-19 10:35 | disposition home or self-care (01) ==
PROVIDERS: Nurse Practitioner; PCP Internal Medicine; Visit Provider Urology
PROC: (CPT 50590; principal; 2025-02-19 10:30)
DX: N20.0 Calculus of kidney (principal); I10 Essential (primary) hypertension; E78.5 Hyperlipidemia, unspecified; R73.03 Prediabetes; J45.909 Unspecified asthma, uncomplicated; F32.A Depression, unspecified; E66.9 Obesity, unspecified; G47.33 Obstructive sleep apnea (adult) (pediatric); Z79.899 Other long term (current) drug therapy; Z88.8 Allergy status to other drugs, medicaments and biological substances; F17.210 Nicotine dependence, cigarettes, uncomplicated
CPT/HCPCS: 50590; 74018; 81025; J0131; J0690; J1100; J1938; J2405; J2704

== ENCOUNTER → 2025-02-19 07:22 | Outpatient (BNV) | payer OTHER, SELFPAY | PROVIDERS: PCP Internal Medicine; Visit Provider Urology | DX: N20.0 Calculus of kidney (principal) | CPT/HCPCS: 50590 ==

== ENCOUNTER → 2025-02-19 08:45 | Outpatient (BNV) | payer OTHER, SELFPAY | PROVIDERS: PCP Internal Medicine; Visit Provider Radiology Diagnostic Radiology | DX: N20.0 Calculus of kidney (principal) | CPT/HCPCS: 74018 ==